=== PATIENT | female | born 1990 | race Caucasian/White ===

== ENCOUNTER 2020-08-22 15:56 | Emergency (ER) | payer MEDICARE, MEDICAID, SELFPAY ==
--- NOTE | ~2020-08-22 | XR_ITS ---
EXAMINATION: XR HAND, RIGHT CLINICAL INFORMATION: Fall COMPARISON: None TECHNIQUE: PA, lateral, and oblique views of the right hand. FINDINGS: Slight deformity of the fifth metacarpal distally compatible with old fracture The bones and soft tissues are normal. No fracture. Alignment is anatomic. Joint spaces are maintained. No erosions or soft tissue calcifications. XR/XR hand RT min 3V IMPRESSION: No acute abnormality. Old fracture fifth metacarpal
--- NOTE | ~2020-08-22 | XR_ITS ---
EXAMINATION: XR WRIST, RIGHT CLINICAL INFORMATION: Fall, injury COMPARISON: None TECHNIQUE: PA, lateral, oblique, and scaphoid views of the right wrist. FINDINGS: The bones and soft tissues are normal. No fracture. Alignment is anatomic with normal joint spaces. No erosions or abnormal soft tissue calcifications. XR/XR wrist RT min 3V IMPRESSION: No acute osseous abnormality of the right wrist.
[2020-08-22 16:53] VITALS: BP 136/61; PULSE 54; RESP 14; TEMP 36.3; O2SAT 99; BMI 41.3
--- NOTE | 2020-08-22 19:06 | ED_ITS ---
HPI - Fall General Chief Complaint: Fall Stated Complaint: wrist inj Time Seen by Provider: 08/22/20 18:51 Source: patient Mode of arrival: ambulatory History of Present Illness HPI Narrative: 30-year-old female with past medical history of asthma presenting to the ED complaining of right wrist/hand pain s/p mechanical fall in the shower this morning. States slipped and fell backwards, hit head on shower, denies LOC or taking anticoagulation. Admits to mild tingling in right hand. Denies injury to other area, vision changes, nausea/vomiting, symptoms prior to fall, decreased ROM MD complaint: fall Related Data Previous Rx's Medication Instructions Recorded acetaminophen [Tylenol Extra 500 mg PO Q6H PRN #20 tab 08/22/20 Strength] naproxen 500 mg PO BID PRN 10 Days #20 tab 08/22/20 Allergies Allergy/AdvReac Type Severity Reaction Status Date / Time No Known Allergies Allergy Verified 08/22/20 18:28 [No Known Allergies*] Review of Systems Review of Systems: Constitutional: No Fever, No Chills Eyes: No Eye Pain, No Vision Changes Cardiovascular: No Chest Pain, No SOB Respiratory: No Dyspnea Gastrointestinal: No Nausea, No Vomiting Musculoskeletal: +joint pain, No Myalgias, No Joint Swelling Skin: No Skin Lesions, No rash Neuro: No Weakness, No Numbness, No Paresthesias, No Loss of Consciousness, No Dizziness, No Headache Yes all other systems are reviewed and are negative [facility] Past Medical History Attestation statement: The following information was validated with the patient. Medical History (Updated 08/22/20 @ 19:23 by MAXIMO Brooks) Asthma Social History Social History Alcohol intake: never Smoking Status: Former smoker Substance Use Type: Marijuana Any prior treatment program specific to substance use: No Advance Directives: No Advance Directives Information Provided: Yes Physical Exam Vital Signs: Vital Signs: Last Vital Signs Temp 97.4 F 08/22/20 16:53 Pulse 54 08/22/20 16:53 Resp 14 08/22/20 16:53 BP 136/61 08/22/20 16:53 Pulse Ox 99 08/22/20 16:53 Body Mass Index 41.3 Const: General: cooperative, healthy appearing, comfortable and no acute distress Orientation/consciousness: patient oriented x3 Limitations: no limitations HENMT: Other: No palpable skull fracture/hematoma or tenderness. No raccoon eyes or Escobar sign Head: Yes normal to inspection, Yes normocephalic and Yes atraumatic Ears: hearing grossly normal bilaterally General nose exam: Normal external nose present Face and sinus: Yes normal facial exam Eyes: General: appearance normal, both eyes and all related structures Pupils: Equal, round and reactive pupils present EOM: EOMs intact bilaterally Neck: Neck: Yes normal visual inspection and Yes no meningeal signs Resp: Effort & Inspection: normal respiratory effort Cardio: Rate: regular rate GI: Inspection: Yes normal to inspection Skin: Rashes: no rashes Wounds: no wounds Neuro: General: patient oriented x3, gait normal, tone normal, moves all extremities, no meningeal signs, no focal motor deficits and CN's II-XI intact bilaterally Cranial nerves: Yes Equal, round and reactive pupils present Cognition (Neuro): normal cognition Gait exam (Neuro): Normal gait present Motor exam (neuro): 5/5 motor strength present throughout and Pronator motor function not present Extrem: Other: Right hand/wrist with mild swelling/hand ecchymosis to volar aspect. + snuffbox tenderness and 1st- 2nd metacarpal tenderness. FROM intact to wrist/hand. Neurovascularly intact. Thumb to finger opposition intact Course Course Course Narrative: * Wrist/hand x-rays without acute findings > patient placed in thumb spica splint to follow-up with orthopedics MDM - Fall MDM Narrative Medical decision making narrative: On exam VSS, NAD/well-appearing, physical exam as above. Concern for fracture Discharge Plan Discharge Clinical Impression: Hand pain, right Acute wrist pain Qualifiers: Laterality: right Qualified Code(s): M25.531 - Pain in right wrist Patient Disposition: Home, Self-Care Instructions: Wrist Injury (ED) Additional Instructions: Your x-rays were unremarkable, however due to where youre tender on exam there is fear you may have a small fracture in 1 of your hand bones. You need to wear the splint at home at all times until you see the clinical reimbursement specialist, only taking off to shower. Ice and elevate your hand/wrist. Take Tylenol and naproxen at home for pain/swelling. If pain persists or worsens, becomes unbearable return to the ED Prescriptions: New acetaminophen [Tylenol Extra Strength] 500 mg tablet 500 mg PO Q6H PRN (Reason: pain or fever) Qty: 20 RF: 0 naproxen 500 mg tablet 500 mg PO BID PRN (Reason: pain) 10 Days Qty: 20 RF: 0 Referrals: Omega Foster MD [Physician] - 1 week
== END 2020-08-22 20:35 | disposition home or self-care (01) ==
PROVIDERS: Emergency Provider Internal Medicine
DX: S69.91XA Unspecified injury of right wrist, hand and finger(s), initial encounter (principal); M25.531 Pain in right wrist; W18.2XXA Fall in (into) shower or empty bathtub, initial encounter; Y93.9 Activity, unspecified; Y92.002 Bathroom of unspecified non-institutional (private) residence as the place of occurrence of the external cause; Y99.9 Unspecified external cause status; Z79.899 Other long term (current) drug therapy; Z87.891 Personal history of nicotine dependence
CPT/HCPCS: 29125; 73110; 73130; 99283; 99284

== ENCOUNTER 2021-01-08 10:41 | Emergency (ER) | payer MEDICARE, MEDICAID, SELFPAY ==
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
[2021-01-08 11:10] VITALS: BP 140/73; PULSE 76; RESP 18; TEMP 36.3; O2SAT 98; BMI 41.3
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
[2021-01-08 13:01] VITALS: BP 115/56; PULSE 57; RESP 16; TEMP 36.2; O2SAT 100
== END 2021-01-08 15:29 | disposition home or self-care (01) ==
PROVIDERS: Emergency Provider Emergency Medicine
DX: S20.211A Contusion of right front wall of thorax, initial encounter (principal); S80.01XA Contusion of right knee, initial encounter; T14.8XXA Other injury of unspecified body region, initial encounter; V00.142A Scooter (nonmotorized) colliding with stationary object, initial encounter; Y93.89 Activity, other specified; Y92.9 Unspecified place or not applicable; Y99.9 Unspecified external cause status
CPT/HCPCS: 70450; 71250; 72125; 99284

== ENCOUNTER 2021-07-06 00:51 | Emergency (ER) | payer MEDICARE, MEDICAID, SELFPAY ==
[2021-07-06 00:57] VITALS: BP 148/54; PULSE 70; RESP 20; TEMP 36.4; O2SAT 100; BMI 47.2
[2021-07-06 01:29] LABS: COVID-19 Test Negative (Negative)
--- NOTE | 2021-07-06 02:13 | ED.URI ---
HPI - URI/Sore Throat General Chief Complaint: Upper Respiratory Symptoms Stated Complaint: Exposure to COVID Time Seen by Provider: 07/06/21 02:12 Source: patient Mode of arrival: ambulatory Limitations: no limitations History of Present Illness HPI Narrative: Patient acted against COVID exposed to a patient who had COVID 3 days ago now she is complaining of nasal discharge cough slight congestion no fever no chills Related Data Previous Rx's Medication Instructions Recorded acetaminophen 500 mg tablet 500 mg PO Q6H PRN #20 tab 08/22/20 (Tylenol Extra Strength) naproxen 500 mg tablet 500 mg PO BID PRN 10 Days #20 tab 08/22/20 cyclobenzaprine 10 mg tablet 10 mg PO TID PRN #10 tab 01/08/21 ibuprofen 800 mg tablet 800 mg PO Q8H PRN #15 tab 01/08/21 Allergies Allergy/AdvReac Type Severity Reaction Status Date / Time No Known Allergies Allergy Verified 01/08/21 11:10 [No Known Allergies*] Review of Systems Review of Systems: Yes all other systems are reviewed and are negative [facility] Past Medical History Medical History Asthma Social History Social History Alcohol intake: never Substance Use Type: Marijuana Advance Directives: No Advance Directives Information Provided: Yes Physical Exam Vital Signs: Vital Signs: Last Vital Signs Temp 97.5 F 07/06/21 00:57 Pulse 70 07/06/21 00:57 Resp 20 07/06/21 00:57 BP 148/54 H 07/06/21 00:57 Pulse Ox 100 07/06/21 00:57 BMI result Body Mass Index 47.2 Appearance: Alert. Oriented X3. No acute distress. ENT: Pharynx normal. Oral Mucosa moist Neck: Normal inspection. Neck supple. CVS: Normal heart rate and rhythm. Pulses normal. Respiratory: No respiratory distress. Equal air entry bilateral, no wheezing/rales/rhonchi Abdomen: Soft and nontender. Skin: Skin warm and dry. Normal skin color. Normal skin turgor. Neuro: Oriented X 3. MDM - URI/Sore Throat Lab Data Attestation: I reviewed the patient's lab results. Labs: Lab Results 07/06/21 Range/Units 01:00 COVID-19 ([facility]) Negative (Negative) COVID-19 Clin Com See Note Discharge Plan Discharge Clinical Impression: Upper respiratory infection Patient Disposition: Home, Self-Care Instructions: Upper Respiratory Infection (ED) Additional Instructions: Drink plenty of fluids Social distancing as advised COVID test is negative Prescriptions: No Action acetaminophen [Tylenol Extra Strength] 500 mg tablet 500 mg PO Q6H PRN (Reason: pain or fever) Qty: 20 RF: 0 naproxen 500 mg tablet 500 mg PO BID PRN (Reason: pain) 10 Days Qty: 20 RF: 0 ibuprofen 800 mg tablet 800 mg PO Q8H PRN (Reason: pain) Qty: 15 RF: 0 cyclobenzaprine 10 mg tablet 10 mg PO TID PRN (Reason: muscle spasm) Qty: 10 RF: 0 Stand Alone Forms: Work/School Release Interventions: ED Discharge Assessment Last Done: 07/06/21 02:18 Discharge Date/Time: 07/06/21 02:19
== END 2021-07-06 02:19 | disposition home or self-care (01) ==
PROVIDERS: Emergency Provider Internal Medicine
DX: J06.9 Acute upper respiratory infection, unspecified (principal); Z20.822 Contact with and (suspected) exposure to COVID-19
CPT/HCPCS: 36415; 87635; 99283

== ENCOUNTER 2021-08-20 19:04 | Emergency (ER) | payer MEDICARE, MEDICAID, SELFPAY ==
[2021-08-20 19:28] VITALS: BP 126/70; PULSE 61; RESP 16; TEMP 36.4; O2SAT 99; BMI 42.6
--- NOTE | 2021-08-20 19:49 | ED_ITS ---
HPI - Eye Problem General Chief complaint: Eye Problems Stated complaint: eye pain, headache Time Seen by Provider: 08/20/21 19:48 Source: patient Mode of arrival: ambulatory History of Present Illness HPI Narrative: 31-year-old female with past medical history of asthma presenting to the ED complaining of left eye watery drainage, erythema, and foreign body sensation since 12:00 p.m. this afternoon. Denies wearing glasses or contacts. Denies known injury/trauma, fall, vision change/loss, headache, nausea/vomiting chief complaint: eye pain and eye redness Onset (ago): hour(s) Related Data Previous Rx's Medication Instructions Recorded acetaminophen 500 mg tablet 500 mg PO Q6H PRN #20 tab 08/22/20 (Tylenol Extra Strength) naproxen 500 mg tablet 500 mg PO BID PRN 10 Days #20 tab 08/22/20 cyclobenzaprine 10 mg tablet 10 mg PO TID PRN #10 tab 01/08/21 ibuprofen 800 mg tablet 800 mg PO Q8H PRN #15 tab 01/08/21 polymyxin B sulfate 10,000 1 drp OPHTHALMIC-LEFT Q3H 7 Days 08/20/21 unit-trimethoprim 1 mg/mL eye #10 ml drops (Polytrim) Allergies Allergy/AdvReac Type Severity Reaction Status Date / Time No Known Allergies Allergy Verified 01/08/21 11:10 [No Known Allergies*] Review of Systems Verdana 4l Review of Systems: Verdana 4d Verdana 4d Constitutional: No Fever, No Chills, No Fatigue, No Malaise ENT/Mouth: No Ear Pain, No Nasal Congestion, No Hoarseness, No sore throat Eyes: + Eye Pain, No Swelling, + Redness, No Foreign Body, + Discharge, No Vision Changes CardiovascularCardiovascular: No Chest Pain, No SOB Respiratory: No Cough, No Dyspnea Gastrointestinal: No Nausea, No Vomiting, No Abdominal pain Musculoskeletal: No joint pain, No Myalgias, No Joint Swelling Skin: No Skin Lesions, No rash Neuro: No Weakness, No Paresthesias, No Dizziness, No Headache Yes all other systems are reviewed and are negative [facility] Past Medical History Attestation statement: The following information was validated with the patient. Medical History Asthma Social History Social History Alcohol intake: never Substance Use Type: Marijuana Advance Directives: No Advance Directives Information Provided: Yes Physical Exam Verdana 4l Vital Signs: Verdana 4d Verdana 4d Vital Signs: Verdana 4d Verdana 4Bd Last Vital Signs Verdana 4d Cadd Drafter New 4d Cadd Drafter New 4d Temp 97.6 F 08/20/21 19:28 Cadd Drafter New 4d Pulse 61 08/20/21 19:28 Cadd Drafter New 4d Resp 16 08/20/21 19:28 BP 126/70 08/20/21 19:28 Pulse Ox 99 08/20/21 19:28 BMI result Body Mass Index 42.6 Const: General: cooperative and healthy appearing Orientation/consciousness: patient oriented x3 Limitations: no limitations HENMT: Head: Yes normal to inspection Ears: hearing grossly normal bilaterally, external ears normal and mastoids normal General nose exam: Normal external nose present Face and sinus: Yes normal facial exam Eyes: Other: IOP right eye: 14, 13, 14 left eye: 15, 14, 13 General: appearance normal, both eyes and all related structures Periorbital: periorbital findings normal Eyelids: Yes eyelids normal Conjunctivae: conjunctival abnormal left subconjunctival hemorrhage; Negative for without discharge Corneas: corneas abnormal on the left abrasion at the following clock position (3 o'clock); Negative for without dendrites present and fluorescein used Pupils: Equal, round and reactive pupils present EOM: EOMs intact bilaterally (without pain) and no movement deficit Direct Ophthalmoscopy: normal light reflex and no photophobia Neck: Neck: Yes normal visual inspection and Yes no meningeal signs Resp: Effort & Inspection: normal respiratory effort and no respiratory distress Cardio: Rate: regular rate Heart sounds: S1 normal heart sound present and S2 normal heart sound present Skin: Rashes: no rashes Wounds: no wounds Neuro: General: patient oriented x3 and no meningeal signs Cranial nerves: Yes Equa l, round and reactive pupils present Gait exam (Neuro): Normal gait present Extrem: General: Yes normal to inspection MDM - Eye Problem MDM Narrative Medical decision making narrative: 31-year-old female with past medical history of asthma presenting to the ED complaining of left eye watery drainage, erythema, and foreign body sensation since 12:00 p.m. this afternoon. On exam vital signs stable, NAD/nontoxic appearing, left subconjunctival hemorrhage noted and corneal abrasion. EOMs intact without pain. No evidence of ulceration. IOP WNL bilaterally. Visual acuity 20/40 bilaterally. Will treat with Polytrim. No evidence of globe rupture/orbital or lenard-orbital cellulitis Discussed with patient worrisome signs and symptoms and strict return precautions and needed close follow-up with Ophthalmology. She verbalized understanding feel safe for discharge home Medical Records Attestation: I reviewed the patient's medical records. Lab Data Attestation: I reviewed the patient's lab results. Discharge Plan Discharge Clinical Impression: Corneal abrasion, Subconjunctival hemorrhage Patient Disposition: Home, Self-Care Instructions: Subconjunctival Hemorrhage (ED), Corneal Abrasion (DC) Additional Instructions: You have a subconjunctival hemorrhage as well as corneal abrasion. Polytrim is antibiotic eyedrops, use as directed. Please follow-up with Ophthalmology. If symptoms persist or worsen, you develop vision loss, vision changes, severe headache, or nausea/vomiting please return to the ED Prescriptions: New polymyxin B sulf-trimethoprim [Polytrim] 10,000 unit- 1 mg/mL drops 1 drp ophthalmic-Left Q3H 7 Days Qty: 10 0RF Rx Instructions: while awake; do not exceed 6 doses in 24 hours No Action acetaminophen [Tylenol Extra Strength] 500 mg tablet 500 mg PO Q6H PRN (Reason: pain or fever) Qty: 20 0RF naproxen 500 mg tablet 500 mg PO BID PRN (Reason: pain) 10 Days Qty: 20 0RF ibuprofen 800 mg tablet 800 mg PO Q8H PRN (Reason: pain) Qty: 15 0RF Rx Instructions: supervising MD Rere Ansari cyclobenzaprine 10 mg tablet 10 mg PO TID PRN (Reason: muscle spasm) Qty: 10 0RF Rx Instructions: supervising MD Barbara Ansari Referrals: Leonardo Lora [Physician] - 2 days
[2021-08-20] MEDS: Fluorescein Sodium STRIP 1 STRIP EYE-LEFT (20:01)
[2021-08-20] MEDS: Tetracaine HCl/PF 0.5% Oph Sol 4 ML DROPS 3 DROP EYE-LEFT (20:01)
== END 2021-08-20 21:27 | disposition home or self-care (01) ==
PROVIDERS: Emergency Provider Student in an Organized Health Care Education/Training Program
DX: S05.02XA Injury of conjunctiva and corneal abrasion without foreign body, left eye, initial encounter (principal); X58.XXXA Exposure to other specified factors, initial encounter; H11.32 Conjunctival hemorrhage, left eye; H57.12 Ocular pain, left eye; Y93.9 Activity, unspecified; Y92.9 Unspecified place or not applicable; Y99.9 Unspecified external cause status
CPT/HCPCS: 99283; 99284

== ENCOUNTER 2021-09-24 12:34 | Emergency (ER) | payer MEDICARE, MEDICAID, SELFPAY ==
[2021-09-24 12:44] VITALS: BP 140/69; PULSE 68; RESP 16; TEMP 36.5; O2SAT 99; BMI 52.9
--- NOTE | 2021-09-24 13:47 | ED.BACK ---
HPI - Back Pain/Injury General Chief Complaint: Back Pain/Injury Stated Complaint: back pain Time Seen by Provider: 09/24/21 13:47 Source: patient Mode of arrival: ambulatory History of Present Illness HPI Narrative: 31-year-old female with past medical history of asthma presenting to the ED complaining of right-sided low back pain radiating down RLE x a few days. Admits to similar symptoms in the past. Denies known injury/trauma or fall, states pain began after bending down to put socks on. Denies weakness, numbness, urinary incontinence/retention, fever MD elicited complaint: back pain Onset (ago): day(s) Related Data Previous Rx's Medication Instructions Recorded acetaminophen 500 mg tablet 500 mg PO Q6H PRN #20 tab 08/22/20 (Tylenol Extra Strength) naproxen 500 mg tablet 500 mg PO BID PRN 10 Days #20 tab 08/22/20 cyclobenzaprine 10 mg tablet 10 mg PO TID PRN #10 tab 01/08/21 ibuprofen 800 mg tablet 800 mg PO Q8H PRN #15 tab 01/08/21 polymyxin B sulfate 10,000 1 drp OPHTHALMIC-LEFT Q3H 7 Days 08/20/21 unit-trimethoprim 1 mg/mL eye #10 ml drops (Polytrim) acetaminophen 500 mg tablet 500 mg PO Q6H PRN #20 tab 09/24/21 (Tylenol Extra Strength) cyclobenzaprine 5 mg tablet 5 mg PO Q8H PRN 5 Days #14 tab 09/24/21 lidocaine 5 % topical patch 1 patch TOPICAL DAILY PRN #30 ea 09/24/21 (Lidoderm) MDD remove after 12 hours naproxen 500 mg tablet 500 mg PO BID PRN 10 Days #20 tab 09/24/21 Allergies Allergy/AdvReac Type Severity Reaction Status Date / Time No Known Allergies Allergy Verified 09/24/21 12:44 [No Known Allergies*] Review of Systems Review of Systems: Constitutional: No Fever, No Chills, No Fatigue, No Malaise ENT/Mouth: No Ear Pain, No Nasal Congestion, No sore throat, No Rhinorrhea, No Swallowing Difficulty Eyes: No Eye Pain, No Swelling, No Redness Cardiovascular: No Chest Pain, No SOB, No Palpitations Respiratory: No Cough, No Dyspnea Gastrointestinal: No Nausea, No Vomiting, No Abdominal pain Genitourinary: No Dysuria, No Urinary Frequency, No Hematuria, No Urinary Incontinence/retention, No Flank Pain, No Urinary Flow Changes Musculoskeletal: + joint pain, No Myalgias, No Joint Swelling Skin: No Skin Lesions, No rash Neuro: No Weakness, No Numbness, No Paresthesias, No Headache Yes all other systems are reviewed and are negative Neurologic: Denies Sensory deficit (Neuro) [facility] Past Medical History Attestation statement: The following information was validated with the patient. Medical History Asthma Social History Social History Alcohol intake: never Substance Use Type: Marijuana Advance Directives: Yes Advance Directives Information Provided: Yes Advance Directives on File: No Physical Exam Vital Signs: Vital Signs: Last Vital Signs Temp 97.7 F 09/24/21 12:44 Pulse 68 09/24/21 12:44 Resp 16 09/24/21 12:44 BP 140/69 H 09/24/21 12:44 Pulse Ox 99 09/24/21 12:44 BMI result Body Mass Index 52.9 Const: General: cooperative, healthy appearing and no acute distress Orientation/consciousness: patient oriented x3 Limitations: no limitations HENMT: Head: Yes normal to inspection and Yes atraumatic Ears: hearing grossly normal bilaterally General nose exam: Normal external nose present Face and sinus: Yes normal facial exam Eyes: General: appearance normal, both eyes and all related structures EOM: EOMs intact bilaterally Neck: Other: Midline cervical spinous tenderness Neck: Yes normal visual inspection Resp: Effort & Inspection: normal respiratory effort and no respiratory distress Cardio: Rate: regular rate Heart sounds: S1 normal heart sound present and S2 normal heart sound present Peripheral pulses: dorsalis pedis present GI: Inspection: Yes normal to inspection Palpation (GI): Soft to palpation, nontender, no guarding and not rigid : General: Yes no CVA tenderness Back/Spine/Pelvis: Other: No Midline thoracic/lumbar spinous tenderness. Right-sided lumbar MSK and right buttock tenderness to palpation Back: no CVA tenderness Skin: Rashes: no rashes Wounds: no wounds Neuro: Other: Ambulating with steady gait. Strength intact throughout. No saddle anesthesia. General: patient oriented x3, gait normal, tone normal and moves all extremities Gait exam (Neuro): Normal gait present Motor exam (neuro): 5/5 motor strength present throughout Sensory Exam: No Sensory deficit (Neuro) Extrem: General: Yes normal to inspection MDM - Back Pain/Injury MDM Narrative Medical decision making narrative: 31-year-old female with past medical history of asthma presenting to the ED complaining of right-sided low back pain radiating down RLE x a few days. Exam vital signs stable, NAD, no midline spinous tenderness throughout, no red flag symptoms, strength intact throughout, no saddle anesthesia. Concern for sciatica/MSK pain/strain. Low concern for equina cord compression or pyelo/renal stone Plan: Pain control, discussed worrisome signs and symptoms and strict return precautions Differential Diagnosis Differential diagnosis: Likely lumbar radiculopathy, sciatica and strain of lumbar region Medical Records Attestation: I reviewed the patient's medical records. Lab Data Attestation: I reviewed the patient's lab results. Discharge Plan Discharge Clinical Impression: Sciatica Patient Disposition: Home, Self-Care Instructions: Acute Low Back Pain (ED) Additional Instructions: Your pain is likely musculoskeletal Flexeril is a muscle relaxer, take at night as it makes you drowsy, do not drive, drink alcohol, or operate machinery while taking it Naproxen as an anti-inflammatory / pain medication, take with food Lidoderm patches are numbing patches, apply to painful area In addition take Tylenol at home If symptoms persist or worsen, pain becomes unbearable, you developed urinary retention or incontinence, or weakness return to the ED Prescriptions: New lidocaine [Lidoderm] 5 % adhesive patch,medicated 1 patch topical DAILY MDD remove after 12 hours PRN (Reason: pain) Qty: 30 0RF Rx Instructions: leave on most painful area for up to 12 hrs cyclobenzaprine 5 mg tablet 5 mg PO Q8H PRN (Reason: pain (scale score 7-10)) 5 Days Qty: 14 0RF acetaminophen [Tylenol Extra Strength] 500 mg tablet 500 mg PO Q6H PRN (Reason: pain or fever) Qty: 20 0RF naproxen 500 mg tablet 500 mg PO BID PRN (Reason: pain) 10 Days Qty: 20 0RF No Action acetaminophen [Tylenol Extra Strength] 500 mg tablet 500 mg PO Q6H PRN (Reason: pain or fever) Qty: 20 0RF naproxen 500 mg tablet 500 mg PO BID PRN (Reason: pain) 10 Days Qty: 20 0RF ibuprofen 800 mg tablet 800 mg PO Q8H PRN (Reason: pain) Qty: 15 0RF Rx Instructions: supervising MD Rere Ansari cyclobenzaprine 10 mg tablet 10 mg PO TID PRN (Reason: muscle spasm) Qty: 10 0RF Rx Instructions: supervising MD Barbara Ansari polymyxin B sulf-trimethoprim [Polytrim] 10,000 unit- 1 mg/mL drops 1 drp ophthalmic-Left Q3H 7 Days Qty: 10 0RF Rx Instructions: while awake; do not exceed 6 doses in 24 hours Referrals: Physician,None [Primary Care Provider] - 2 days
== END 2021-09-24 13:55 | disposition home or self-care (01) ==
PROVIDERS: Emergency Provider Emergency Medicine
DX: M54.41 Lumbago with sciatica, right side (principal)
CPT/HCPCS: 99283

== ENCOUNTER 2022-04-28 09:09 | Emergency (ER) | payer MEDICARE, MEDICAID, SELFPAY ==
[2022-04-28 09:12] VITALS: BP 151/65; PULSE 58; RESP 16; TEMP 36; O2SAT 100; BMI 41.3
--- NOTE | 2022-04-28 09:53 | ED.GENADULT ---
HPI - General Adult General Chief complaint: Skin/Abscess/Foreign Body Stated complaint: swollen neck, lumps on neck Time Seen by Provider: 04/28/22 09:18 Source: patient Mode of arrival: ambulatory Limitations: no limitations History of Present Illness HPI narrative: Patient is a 32-year-old female with a past medical history of asthma, presenting with to lumps on the back of her neck which started a few days prior. Patient reports associated 4/10 pain while touching these lumps, and states that the pain radiates up the right side of her back head. She reports 0/10 pain at rest. patient denies fever, chills, rash, or close sick contacts. patient also states that her urine smells like a dirty diaper , and over the past year she has developed this hypopigmented rash. Patient reports that she has ibuprofen at home though has not taken it because of the pain only happens when she touches the lump. MD complaint: enlarged bump on the back of neck Onset (ago): day(s) (2) Location: neck Radiation: neck Severity scale (1-10): 4 ( with palpation) Pain Consistency: intermittent Relieving factors: rest Exacerbating factors: other ( palpation) Associated symptoms: denies other symptoms Treatments prior to arrival: none Related Data Previous Rx's Medication Instructions Recorded acetaminophen 500 mg tablet 500 mg PO Q6H PRN pain or fever 08/22/20 (Tylenol Extra Strength) #20 tabs naproxen 500 mg tablet 500 mg PO BID PRN pain 10 days #20 08/22/20 tabs cyclobenzaprine 10 mg tablet 10 mg PO TID PRN muscle spasm #10 01/08/21 tabs ibuprofen 800 mg tablet 800 mg PO Q8H PRN pain #15 tabs 01/08/21 polymyxin B sulfate 10,000 1 drp ophthalmic-Left Q3H 7 days 08/20/21 unit-trimethoprim 1 mg/mL eye #10 mL drops (Polytrim) acetaminophen 500 mg tablet 500 mg PO Q6H PRN pain or fever 09/24/21 (Tylenol Extra Strength) #20 tabs cyclobenzaprine 5 mg tablet 5 mg PO Q8H PRN pain (scale score 09/24/21 7-10) 5 days #14 tabs lidocaine 5 % topical patch 1 patch topical DAILY PRN pain #30 09/24/21 (Lidoderm) ea naproxen 500 mg tablet 500 mg PO BID PRN pain 10 days #20 09/24/21 tabs nitrofurantoin 100 mg PO Q12H 5 days #10 caps 04/28/22 monohydrate/macrocrystals 100 mg capsule (Macrobid) Allergies Allergy/AdvReac Type Severity Reaction Status Date / Time No Known Allergies Allergy Verified 09/24/21 12:44 [No Known Allergies*] Review of Systems Review of Systems: Constitutional: No Fever, No Chills ENT/Mouth: No sore throat, No Rhinorrhea, No Swallowing Difficulty Eyes: No Eye Pain, No Swelling, No Redness Cardiovascular: No Chest Pain, No SOB, No Orthopnea, No Edema Respiratory: No Cough, No Sputum, No Wheezing, No dyspnea Gastrointestinal: No Nausea, No Vomiting, No Diarrhea, No abdominal Pain, No Hematochezia, No Melena Genitourinary: No Dysuria, No Urinary Frequency, No Hematuria, +Foul smelling urine Musculoskeletal: No joint pain, No Myalgias Skin: No Skin Lesions, No rash Neuro: No Weakness, No Numbness, No Dizziness, No Headache Psych: No Anxiety/Panic, No Depression Heme/Lymph: No Bruising, + bump on back side of right neck - possible Lymphadenopathy Yes all other systems are reviewed and are negative [facility] Past Medical History Medical History Asthma Social History Social History Alcohol intake: never Substance Use Type: Marijuana Advance Directives: No Advance Directives Information Provided: No Physical Exam ED Vital Signs: Vital Signs - 24 hr 04/28/22 09:12 Temperature 96.8 F Pulse Rate 58 Respiratory Rate 16 Blood Pressure 151/65 H Pulse Oximetry 100 Oxygen Delivery Method Room Air BMI result Body Mass Index 41.3 Appearance: Alert. Oriented X3. No acute distress. Eyes: Pupils equal, round and reactive to light. ENT: Pharynx normal. Neck: Normal inspection. Neck supple. 1 round soft mass approximately 1 cm diameter located near the occipital lymph nodes. CVS: Normal heart rate and rhythm. Pulses normal. Respiratory: No respiratory distress. Breath sounds normal. Skin: Skin warm and dry. Normal skin color. Reticular hypopigmentation noted bilaterally on shins. Normal skin turgor. No rashes. Extremities: No lower extremity edema. Neuro: Oriented X 3. No motor deficit. No sensory deficit. Course Course Course Narrative: Patient is a 32-year-old female with past medical history of asthma presenting with two bumps on the right side of the neck. Patient denies any systemic symptoms such as fever chills or rashes. Physical exam is significant for 1 round soft mass approximately 1 cm diameter located near the occipital lymph nodes, 2nd bump was not palpated. Plan: - CBC, BMP, UA - discharge home with anti-inflammatories, follow-up with PCP for further workup with an ultrasound if pain/ bumps persist. Reevaluation(s) Reevaluation #1: Labs are unremarkable. Urinalysis consistent with infection. Will treat with oral antibiotics. She will follow-up with her PCP as needed. Stable for discharge home. Medical Decision Making Lab Data Result diagrams: 04/28/22 10:25 04/28/22 10:25 Labs: Lab Results 04/28/22 04/28/22 04/28/22 Range/Units 10:25 10:25 10:25 WBC 8.8 (4.8-10.8) X10*3/uL RBC 4.45 (4.20-5.50) X10*6/uL Hgb 13.7 (12.0-16.0) g/dl Hct 41.7 (37.0-47.0) % MCV 93.7 (80.0-98.0) fL MCH 30.8 (27.0-33.0) pg MCHC 32.9 (31.0-35.0) g/dl RDW 13.0 (11.0-16.0) % Plt Count 191 (160-400) X10*3/uL MPV 10.7 (9.4-12.3) fL Immature Gran % (Auto) 0.3 (0.0-0.4) % Neut % (Auto) 69.6 (45-73) % Lymph % (Auto) 23.2 (20-40) % [place] % (Auto) 4.4 (2-11) % Eos % (Auto) 1.9 (0-4) % Baso % (Auto) 0.6 (0-2) % Lymph # (Auto) 2.1 (1.2-4.9) X10*3/uL [place] # (Auto) 0.4 (0.1-1.2) X10*3/uL Eos # (Auto) 0.2 (0.0-0.4) X10*3/uL Baso # (Auto) 0.1 (0.0-0.2) X10*3/uL Abs Immat Gran (auto) 0.03 (0.00-0.03) X10*3/uL Absolute Neuts (auto) 6.1 (2.0-8.3) x10*3/uL Absolute Nucleated RBC 0.000 (0.0-0.012) X10*3/uL Nucleated RBC % (auto) 0.0 (0.0-0.2) /100WBC Sodium 141 (135-145) mmol/L Potassium 4.3 (3.3-5.1) mmol/L Chloride 105 (96-108) mmol/L Carbon Dioxide 27 (22-29) mmol/L Anion Gap 13 (12-20) BUN 15 (9-16) mg/dL Creatinine 0.71 (0.5-1.4) mg/dL Estim Creat Clear Calc 159.5 Estimated GFR > 60 Random Glucose 100 (60-115) mg/dL Calcium 8.7 (8.4-10.2) mg/dL Urine Color Yellow Urine Appearance Clear Urine pH 6.0 (5.0-9.0) Ur Specific [place] 1.020 (1.005-1.025) Urine Protein Negative (Neg-Trace) mg/dL Urine Glucose (UA) Negative (Negative) mg/dL Urine Ketones Negative (Negative) mg/dL Urine Blood Negative (Negative) Urine Nitrite Negative (Negative) Ur Leukocyte Esterase Moderate (2+) H (Negative) Urine RBC 3-5 H (0-2) /HPF Urine WBC >50 H (0-5) /HPF Ur Squamous Epith Cells 0-2 (0-2) /HPF Urine Bacteria None Seen (None Seen) Hyaline Casts 0-2 (0-2) /LPF Critical Care Time Critical Care Time Critical Care Time: No Discharge Plan Discharge Clinical Impression: Acute UTI, Lymphadenopathy Patient Disposition: Home, Self-Care Instructions: Urinary Tract Infection in Women (ED), Lymphadenopathy (ED) Additional Instructions: Your lab workup today was unremarkable. Your urinalysis showed evidence of urinary tract infection. Take the prescribed antibiotic as directed. Complete the entire course. No sexual activity until all of her symptoms are resolved completely and your antibiotics are completed. Take Motrin and Tylenol as needed for pain and swelling of the enlarged lymph node. If you have persistent swelling and pain recommend following up with her primary care doctor for further evaluation. If you develop new or worsening symptoms call 911 or come back to the ER for further evaluation. Prescriptions: New nitrofurantoin monohyd/m-cryst [Macrobid] 100 mg capsule 100 mg PO Q12H 5 Days Qty: 10 0RF Rx Instructions: must administer with a meal/food No Action acetaminophen [Tylenol Extra Strength] 500 mg tablet 500 mg PO Q6H PRN (Reason: pain or fever) Qty: 20 0RF naproxen 500 mg tablet 500 mg PO BID PRN (Reason: pain) 10 Days Qty: 20 0RF ibuprofen 800 mg tablet 800 mg PO Q8H PRN (Reason: pain) Qty: 15 0RF Rx Instructions: supervising MD Rere Ansari cyclobenzaprine 10 mg tablet 10 mg PO TID PRN (Reason: muscle spasm) Qty: 10 0RF Rx Instructions: supervising MD Barbara Ansari polymyxin B sulf-trimethoprim [Polytrim] 10,000 unit- 1 mg/mL drops 1 drp ophthalmic-Left Q3H 7 Days Qty: 10 0RF Rx Instructions: while awake; do not exceed 6 doses in 24 hours lidocaine [Lidoderm] 5 % adhesive patch,medicated 1 patch topical DAILY MDD remove after 12 hours PRN (Reason: pain) Qty: 30 0RF Rx Instructions: leave on most painful area for up to 12 hrs cyclobenzaprine 5 mg tablet 5 mg PO Q8H PRN (Reason: pain (scale score 7-10)) 5 Days Qty: 14 0RF acetaminophen [Tylenol Extra Strength] 500 mg tablet 500 mg PO Q6H PRN (Reason: pain or fever) Qty: 20 0RF naproxen 500 mg tablet 500 mg PO BID PRN (Reason: pain) 10 Days Qty: 20 0RF
[2022-04-28 10:30] LABS: MANUAL DIFF FLAG NO
[2022-04-28 10:31] LABS: Basophils Absolute Auto 0.1 X10*3/uL (0.0-0.2); Basophils Percent Auto 0.6 % (0-2); Eosinophils Absolute Auto 0.2 X10*3/uL (0.0-0.4); Eosinophils Percent Auto 1.9 % (0-4); Hematocrit 41.7 % (37.0-47.0); Hemoglobin 13.7 g/dl (12.0-16.0); Imm Gran Abs Auto 0.03 X10*3/uL (0.00-0.03); Imm Gran Pct Auto 0.3 % (0.0-0.4); Lymphocytes Absolute Auto 2.1 X10*3/uL (1.2-4.9); Lymphocytes Percent Auto 23.2 % (20-40); Mean Corpuscular HGB Conc 32.9 g/dl (31.0-35.0); Mean Corpuscular Hemoglobin 30.8 pg (27.0-33.0); Mean Corpuscular Volume 93.7 fL (80.0-98.0); Mean Platelet Volume 10.7 fL (9.4-12.3); Monocytes Absolute Auto 0.4 X10*3/uL (0.1-1.2); Monocytes Percent Auto 4.4 % (2-11); Neutrophils Absolute Auto 6.1 x10*3/uL (2.0-8.3); Neutrophils Percent Auto 69.6 % (45-73); Platelet Count 191 X10*3/uL (160-400); Red Blood Count 4.45 X10*6/uL (4.20-5.50); White Blood Count 8.8 X10*3/uL (4.8-10.8)
[2022-04-28 10:32] LABS: Appearance Urine Clear; Color Urine Yellow; Glucose Urine UA Negative (Negative); Leukocyte Esterase Urine Moderate (2+) (Negative); Nitrite Urine Negative (Negative); UMIC TRIGGER UACC YES; Urine Blood Negative (Negative); Urine Ketones Negative (Negative); Urine Protein Negative (Neg-Trace)
[2022-04-28 10:34] LABS: Bacteria Urine None Seen (None Seen); Hyaline Casts Urine 0-2 /LPF (0-2); Squamous Epithelial Cell Urine 0-2 /HPF (0-2); UACC Culture Trigger YES; WBC Urine >50 /HPF (0-5)
[2022-04-28 10:50] LABS: Anion Gap 13 (12-20); Blood Urea Nitrogen 15 mg/dL (9-16); Calcium 8.7 mg/dL (8.4-10.2); Carbon Dioxide 27 mmol/L (22-29); Chloride 105 mmol/L (96-108); Creatinine Clr Calc Pharmacy 159.5; Estimated Glomerular Filt Rate > 60; Glucose Random 100 mg/dL (60-115); Potassium 4.3 mmol/L (3.3-5.1); Sodium 141 mmol/L (135-145)
== END 2022-04-28 11:24 | disposition home or self-care (01) ==
PROVIDERS: Physician Assistant; Emergency Provider Emergency Medicine
DX: N39.0 Urinary tract infection, site not specified (principal); R59.1 Generalized enlarged lymph nodes; Z79.899 Other long term (current) drug therapy
CPT/HCPCS: 36415; 80048; 81001; 85025; 87086; 87088; 87147; 87186; 99283

== ENCOUNTER 2022-10-23 14:21 | Emergency (ER) | payer MEDICARE, MEDICAID, SELFPAY ==
[2022-10-23 15:26] VITALS: BP 129/51; PULSE 53; RESP 16; TEMP 36.8; O2SAT 99; BMI 41.3
--- NOTE | 2022-10-23 15:26 | ED_ITS ---
HPI - General Adult General Chief complaint: General Medical <MAXIMO Ivory Last Filed: 10/23/22 15:28> Stated complaint: tick bite <MAXIMO Ivory Last Filed: 10/23/22 15:28> Time Seen by Provider: 10/23/22 16:03 <MAXIMO Ivory Last Filed: 10/23/22 15:28> Source: patient <MAXIMO Boykin Last Filed: 10/23/22 16:11> Mode of arrival: ambulatory <MAXIMO Boykin Last Filed: 10/23/22 16:11> Limitations: no limitations <MAXIMO Boykin Last Filed: 10/23/22 16:11> History of Present Illness HPI narrative: 32-year-old female presents to the ER for evaluation of a tick bite that she noticed yesterday. She went fishing the day prior and thinks she got a tick bite in her left inguinal area. She pulled the tick out yesterday. She noticed a bruise and a small red ring around the area and is concerned she may not have gotten the entire take out. She does report some itching and discomfort to the area with a bite. She also reports some diffuse body aches, mild. No fevers. She has no other insect bites. History of Lyme <MAXIMO Boykin Last Filed: 10/23/22 16:11> MD complaint: Tick bite <MAXIMO Boykin Last Filed: 10/23/22 16:11> Onset (ago): day(s) (2) <MAXIMO Boykin Last Filed: 10/23/22 16:11> Location: left and lower extremity <MAXIMO Boykin Last Filed: 10/23/22 16:11> Radiation: non-radiation <MAXIMO Boykin Last Filed: 10/23/22 16:11> Severity: mild <MAXIMO Boykin Last Filed: 10/23/22 16:11> Quality: aching <MAXIMO Boykin Last Filed: 10/23/22 16:11> Pain Consistency: intermittent <MAXIMO Boykin Last Filed: 10/23/22 16:11> Relieving factors: none <MAXIMO Boykin - Last Filed: 10/23/22 16:11> Exacerbating factors: none <MAXIMO Boykin - Last Filed: 10/23/22 16:11> Associated symptoms: denies other symptoms <MAXIMO Boykin - Last Filed: 10/23/22 16:11> Treatments prior to arrival: none <MAXIMO Boykin - Last Filed: 10/23/22 16:11> Related Data Home medications: Previous Rx's Medication Instructions Recorded acetaminophen 500 mg tablet 500 mg PO Q6H PRN pain or fever 08/22/20 (Tylenol Extra Strength) #20 tabs naproxen 500 mg tablet 500 mg PO BID PRN pain 10 days #20 08/22/20 tabs cyclobenzaprine 10 mg tablet 10 mg PO TID PRN muscle spasm #10 01/08/21 tabs ibuprofen 800 mg tablet 800 mg PO Q8H PRN pain #15 tabs 01/08/21 polymyxin B sulfate 10,000 1 drp ophthalmic-Left Q3H 7 days 08/20/21 unit-trimethoprim 1 mg/mL eye #10 mL drops (Polytrim) acetaminophen 500 mg tablet 500 mg PO Q6H PRN pain or fever 09/24/21 (Tylenol Extra Strength) #20 tabs cyclobenzaprine 5 mg tablet 5 mg PO Q8H PRN pain (scale score 09/24/21 7-10) 5 days #14 tabs lidocaine 5 % topical patch 1 patch topical DAILY PRN pain #30 09/24/21 (Lidoderm) ea naproxen 500 mg tablet 500 mg PO BID PRN pain 10 days #20 09/24/21 tabs nitrofurantoin 100 mg PO Q12H 5 days #10 caps 04/28/22 monohydrate/macrocrystals 100 mg capsule (Macrobid) <MAXIMO Ivory - Last Filed: 10/23/22 15:28> Allergies/adverse reactions: Allergies Allergy/AdvReac Type Severity Reaction Status Date / Time No Known Allergies Allergy Verified 10/23/22 15:25 [No Known Allergies*] <MAXIMO Ivory - Last Filed: 10/23/22 15:28> Review of Systems Review of Systems: Yes all other systems are reviewed and are negative <MAXIMO Boykin - Last Filed: 10/23/22 16:11> [facility] Past Medical History Medical History: Medical History Asthma <MAXIMO Ivory - Last Filed: 10/23/22 15:28> Social History Social History: Social History Alcohol intake: never Substance Use Type: Marijuana <MAXIMO Ivory - Last Filed: 10/23/22 15:28> Physical Exam ED Vital Signs: Vital Signs - 24 hr 10/23/22 15:26 Temperature 98.2 F Pulse Rate 53 Respiratory Rate 16 Blood Pressure 129/51 L Pulse Oximetry 99 Oxygen Delivery Method Room Air BMI result Body Mass Index 41.3 <MAXIMO Ivory Last Filed: 10/23/22 15:28> Vital Signs - 24 hr 10/23/22 15:26 Temperature 98.2 F Pulse Rate 53 Respiratory Rate 16 Blood Pressure 129/51 L Pulse Oximetry 99 Oxygen Delivery Method Room Air BMI result Body Mass Index 41.3 <MAXIMO Boykin - Last Filed: 10/23/22 16:11> Appearance: Alert. Oriented X3. No acute distress. HEENT: normal inspection CVS: Normal heart rate and rhythm. Pulses normal. Respiratory: No respiratory distress. Skin: Skin warm and dry. Normal skin color. Normal skin turgor Extremities: Left inguinal area with a small, approximately 1 cm round ecchymotic area surrounded by a small ring of erythema. No palpable masses, no warmth. No visible insect, area is flat Neuro: Oriented X 3. grossly normal, nonfocal <MAXIMO Boykin - Last Filed: 10/23/22 16:11> Course Course Course Narrative: RME performed by Jeanna Alejandre PA-C. Patient is a 32 year old assigned female at presenting to the emergency department after being bit by a tick in her left groin. Patient states that she was bit by a tick on however, she didn't find the tick until yesterday. Patient states that she removed it but isn't sure if she got the head or not. Labs ordered. Patient placed back in the waiting room pending room availability and results. <MAXIMO Ivory - Last Filed: 10/23/22 15:28> Medical Decision Making Medical Decision Making MDM Narrative: 32-year-old female presents to the ER for evaluation of left inguinal take bite that occurred on . She removed the tick at approximately 24:00 hours. Exam today does not reveal any further remnants of the tick imbedded in her skin. It is flat. There is some bruising and mild erythema around the bite. The time is not sufficient to transmit Lyme disease. She can get 200 mg prophylactic doxycycline and be stable for discharge home. Patient has been counseled. She is stable for DC. <MAXIMO Boykin Last Filed: 10/23/22 16:11> Differential Diagnosis Differential Diagnoses: The differential diagnosis associated with the presentation includes <MAXIMO Boykin Last Filed: 10/23/22 16:11> Tick bite, insect bite, Lyme disease, bull's-eye rash <MAXIMO Boykin Last Filed: 10/23/22 16:11> External Record Review External record reviewed: Prior outpatient labs <MAXIMO Boykin Last Filed: 10/23/22 16:11> Prescription Management I considered prescription management with: Antibiotic <MAXIMO Boykin Last Filed: 10/23/22 16:11> Critical Care Time Critical Care Time Critical Care Time: No <MAXIMO Boykin Last Filed: 10/23/22 16:11> Discharge Plan Discharge Clinical Impression: Tick bite <MAXIMO Ivory Last Filed: 10/23/22 15:28> Patient Disposition: Home, Self-Care <MAXIMO Ivory Last Filed: 10/23/22 15:28> Instructions: Tick Bite (ED) <MAXIMO Ivory Last Filed: 10/23/22 15:28> Additional Instructions: You were given the 200 mg of doxycycline to prevent transmission of Lyme disease. A tick needs to be imbedded in the skin for 72 hours noted transmit Lyme disease. It is very unlikely you will get Lyme disease. Monitor the area for worsening redness or swelling. You can use warm compresses to the area as needed for pain. Follow-up with your doctor as needed. <MAXIMO Ivory - Last Filed: 10/23/22 15:28> Prescriptions: No Action acetaminophen [Tylenol Extra Strength] 500 mg tablet 500 mg PO Q6H PRN (Reason: pain or fever) Qty: 20 0RF naproxen 500 mg tablet 500 mg PO BID PRN (Reason: pain) 10 Days Qty: 20 0RF ibuprofen 800 mg tablet 800 mg PO Q8H PRN (Reason: pain) Qty: 15 0RF Rx Instructions: supervising MD Rere Ansari cyclobenzaprine 10 mg tablet 10 mg PO TID PRN (Reason: muscle spasm) Qty: 10 0RF Rx Instructions: supervising MD Barbara Ansari polymyxin B sulf-trimethoprim [Polytrim] 10,000 unit- 1 mg/mL drops 1 drp ophthalmic-Left Q3H 7 Days Qty: 10 0RF Rx Instructions: while awake; do not exceed 6 doses in 24 hours lidocaine [Lidoderm] 5 % adhesive patch,medicated 1 patch topical DAILY MDD remove after 12 hours PRN (Reason: pain) Qty: 30 0RF Rx Instructions: leave on most painful area for up to 12 hrs cyclobenzaprine 5 mg tablet 5 mg PO Q8H PRN (Reason: pain (scale score 7-10)) 5 Days Qty: 14 0RF acetaminophen [Tylenol Extra Strength] 500 mg tablet 500 mg PO Q6H PRN (Reason: pain or fever) Qty: 20 0RF naproxen 500 mg tablet 500 mg PO BID PRN (Reason: pain) 10 Days Qty: 20 0RF nitrofurantoin monohyd/m-cryst [Macrobid] 100 mg capsule 100 mg PO Q12H 5 Days Qty: 10 0RF Rx Instructions: must administer with a meal/food <MAXIMO Ivory - Last Filed: 10/23/22 15:28>
[2022-10-23] MEDS: Doxycycline Monohydrate 100 MG CAPSULE 200 MG PO (16:09)
[2022-10-26 00:08] LABS: A. Phagocytphilium DNA,RT-PCR NOT DETECTED (NOT DETECTED); Babesia Microti DNA, RT-PCR NOT DETECTED (NOT DETECTED); Borrelia Miyamotoi,DNA RT-PCR NOT DETECTED (NOT DETECTED); E.Chaffeensis DNA RT-PCR NOT DETECTED (NOT DETECTED); Lyme(Borrelia ssp)DNA RT-PCR NOT DETECTED (NOT DETECTED)
== END 2022-10-23 16:15 | disposition home or self-care (01) ==
LOC: HO.ED 16:11
PROVIDERS: Physician Assistant Medical; Emergency Provider Emergency Medicine
DX: S30.861A Insect bite (nonvenomous) of abdominal wall, initial encounter (principal); W57.XXXA Bitten or stung by nonvenomous insect and other nonvenomous arthropods, initial encounter; R10.2 Pelvic and perineal pain; J45.909 Unspecified asthma, uncomplicated; Y93.19 Activity, other involving water and watercraft; Y92.89 Other specified places as the place of occurrence of the external cause; Y99.8 Other external cause status
CPT/HCPCS: 36415; 87798; 87801; 99283

== ENCOUNTER 2022-12-16 08:29 | Emergency (ER) | payer MEDICARE, MEDICAID, SELFPAY ==
--- NOTE | ~2022-12-16 | US_ITS ---
EXAM: Pelvic Ultrasound CLINICAL INDICATION: Pelvic pain COMPARISON: None available TECHNIQUE: The pelvis was evaluated using transabdominal and transvaginal imaging. Color Doppler imaging and spectral analysis of the bilateral ovaries was also performed. FINDINGS: The uterus measures 7.5 x 3.3 x 4.4 cm in longitudinal by AP by transverse dimension. The endometrial stripe is not thickened and measures 0.5 cm. Nabothian cysts noted within the cervix. The left ovary measures approximately 2.2 x 1.6 x 2.4 cm and is normal. The right ovary measures approximately 2.0 x 1.2 x 1.1 cm and is also normal. Spectral analysis reveals normal arterial and venous waveforms in the bilateral ovaries. There are no abnormal adnexal masses. There is no free fluid in the pelvis. US/US pelvic and transvaginal IMPRESSION: Unremarkable sonographic imaging of the pelvis.
--- NOTE | ~2022-12-16 | US_ITS ---
EXAM: Pelvic Ultrasound CLINICAL INDICATION: Pelvic pain COMPARISON: None available TECHNIQUE: The pelvis was evaluated using transabdominal and transvaginal imaging. Color Doppler imaging and spectral analysis of the bilateral ovaries was also performed. FINDINGS: The uterus measures 7.5 x 3.3 x 4.4 cm in longitudinal by AP by transverse dimension. The endometrial stripe is not thickened and measures 0.5 cm. Nabothian cysts noted within the cervix. The left ovary measures approximately 2.2 x 1.6 x 2.4 cm and is normal. The right ovary measures approximately 2.0 x 1.2 x 1.1 cm and is also normal. Spectral analysis reveals normal arterial and venous waveforms in the bilateral ovaries. There are no abnormal adnexal masses. There is no free fluid in the pelvis. US/US pelvic ovarian doppler IMPRESSION: Unremarkable sonographic imaging of the pelvis.
[2022-12-16 08:37] VITALS: BP 146/62; PULSE 53; RESP 18; TEMP 36.6; O2SAT 98; BMI 43.8
[2022-12-16 09:27] VITALS: BP 111/49; PULSE 46; RESP 17; TEMP 36.7; O2SAT 97
[2022-12-16 10:09] LABS: MANUAL DIFF FLAG NO
[2022-12-16 10:18] LABS: Basophils Absolute Auto 0.1 X10*3/uL (0.0-0.2); Basophils Percent Auto 0.6 % (0-2); Eosinophils Absolute Auto 0.2 X10*3/uL (0.0-0.4); Eosinophils Percent Auto 1.8 % (0-4); Hematocrit 44.6 % (37.0-47.0); Hemoglobin 14.8 g/dl (12.0-16.0); Imm Gran Abs Auto 0.02 X10*3/uL (0.00-0.03); Imm Gran Pct Auto 0.2 % (0.0-0.4); Lymphocytes Absolute Auto 1.6 X10*3/uL (1.2-4.9); Lymphocytes Percent Auto 18.4 % (20-40); Mean Corpuscular HGB Conc 33.2 g/dl (31.0-35.0); Mean Corpuscular Hemoglobin 31.1 pg (27.0-33.0); Mean Corpuscular Volume 93.7 fL (80.0-98.0); Monocytes Absolute Auto 0.4 X10*3/uL (0.1-1.2); Monocytes Percent Auto 4.1 % (2-11); Neutrophils Absolute Auto 6.5 x10*3/uL (2.0-8.3); Neutrophils Percent Auto 74.9 % (45-73); Platelet Count 194 X10*3/uL (160-400); Red Blood Count 4.76 X10*6/uL (4.20-5.50); White Blood Count 8.7 X10*3/uL (4.8-10.8)
[2022-12-16] MEDS: Ketorolac Tromethamine 30 MG/ML VIAL IVPUSH (10:35)
--- NOTE | 2022-12-16 10:37 | ED_ITS ---
HPI - General Adult General Chief complaint: General Medical Stated complaint: pull back and lower abd pain Time Seen by Provider: 12/16/22 10:02 Source: patient Mode of arrival: ambulatory Limitations: no limitations History of Present Illness HPI narrative: 32 yo female with history of asthma, sciatica, obesity who presents to the ER for evaluation of pelvic pain since yesterday. She states the pain is cramping and she initially thought it was gas but it never went away. She states she is moving her bowels normally, denies any nausea, vomiting. She thinks she might have an ovarian cyst. She denies any vaginal discharge or vaginal bleeding. She last had sexual intercourse 1 week ago, however denies any chance of . She states she started her mental cycle 3 days ago and is already over. MD complaint: pelvic pain Onset (ago): day(s) (1) Location: pelvis Radiation: non-radiation Severity: moderate Quality: other (Cramping) Pain Consistency: intermittent Relieving factors: none Exacerbating factors: none Associated symptoms: denies other symptoms Treatments prior to arrival: none Related Data Previous Rx's Medication Instructions Recorded acetaminophen 500 mg tablet 500 mg PO Q6H PRN pain or fever 08/22/20 (Tylenol Extra Strength) #20 tabs naproxen 500 mg tablet 500 mg PO BID PRN pain 10 days #20 08/22/20 tabs cyclobenzaprine 10 mg tablet 10 mg PO TID PRN muscle spasm #10 01/08/21 tabs ibuprofen 800 mg tablet 800 mg PO Q8H PRN pain #15 tabs 01/08/21 polymyxin B sulfate 10,000 1 drp ophthalmic-Left Q3H 7 days 08/20/21 unit-trimethoprim 1 mg/mL eye #10 mL drops (Polytrim) acetaminophen 500 mg tablet 500 mg PO Q6H PRN pain or fever 09/24/21 (Tylenol Extra Strength) #20 tabs cyclobenzaprine 5 mg tablet 5 mg PO Q8H PRN pain (scale score 09/24/21 7-10) 5 days #14 tabs lidocaine 5 % topical patch 1 patch topical DAILY PRN pain #30 09/24/21 (Lidoderm) ea naproxen 500 mg tablet 500 mg PO BID PRN pain 10 days #20 09/24/21 tabs nitrofurantoin 100 mg PO Q12H 5 days #10 caps 04/28/22 monohydrate/macrocrystals 100 mg capsule (Macrobid) ketorolac 10 mg tablet 10 mg PO Q8H PRN pain 5 days #15 12/16/22 tabs Allergies Allergy/AdvReac Type Severity Reaction Status Date / Time No Known Allergies Allergy Verified 12/16/22 08:37 [No Known Allergies*] Review of Systems Review of Systems: Yes all other systems are reviewed and are negative [facility] Past Medical History Medical History Asthma Social History Social History Alcohol intake: never Substance Use Type: Marijuana Advance Directives: No Advance Directives Information Provided: Yes Physical Exam ED Vital Signs: Vital Signs - 24 hr 12/16/22 08:37 12/16/22 09:27 Temperature 98 F 98.1 F Pulse Rate 53 46 L Respiratory Rate 18 17 Blood Pressure 146/62 H 111/49 L Pulse Oximetry 98 97 Oxygen Delivery Method Room Air Room Air BMI result Body Mass Index 43.8 Appearance: Alert. Oriented X3. No acute distress. Head: normocephalic, atraumatic. Eyes: Pupils equal, round and reactive to light. ENT: Pharynx normal. No tonsillar swelling or exudate. Neck: Normal inspection. Neck supple. CVS: Normal heart rate and rhythm. Pulses normal. Respiratory: No respiratory distress. Breath sounds normal. Abdomen: Obese, Soft and nontender. +BS x4. Pelvic deferred Skin: Skin warm and dry. Normal skin color. Normal skin turgor. No rashes. Extremities: No lower extremity edema. No joint swelling. Neuro/psych: Oriented X 3. No motor deficit. No sensory deficit. CN II-XII intact. Normal speech and cognition. Medications Administered Discontinued Medications Generic Name Dose Route Start Last Admin Trade Name Freq PRN Reason Stop Dose Admin Ketorolac Tromethamine 30 mg 12/16/22 10:22 12/16/22 10:35 Ketorolac Tromethamine 30 Mg/Ml Vial IVPUSH 12/16/22 10:23 30 mg ONCE ONE Administration Medical Decision Making Medical Decision Making MDM Narrative: 32-year-old female presents to the ER for evaluation of pelvic cramping and lower abdominal pain for the last 1 day. Her urinalysis is negative for infection and . Her lab work is unremarkable. Pelvic ultrasound today was unremarkable, no evidence of ovarian cyst or torsion. She was given a dose of Toradol with complete resolution of her pain. Her cramping is most likely due to residual menstrual cramping. She is stable for discharge home. She was given OBGYN referral as she does not have 1 and when she would like to establish care. Stable for discharge. Differential Diagnosis Differential Diagnoses: The differential diagnosis associated with the presentation includes Menstrual cramps, ovarian cyst, ovarian torsion, PID, STI, UTI, gas pain, constipation, TOA Lab Data MDM Lab Attestation statement: I reviewed the patient's lab results. Normal CBC, no major metabolic derangement 12/16/22 10:04 12/16/22 10:04 Labs: Lab Results 12/16/22 12/16/22 12/16/22 Range/Units 10:04 10:04 10:36 WBC 8.7 (4.8-10.8) X10*3/uL RBC 4.76 (4.20-5.50) X10*6/uL Hgb 14.8 (12.0-16.0) g/dl Hct 44.6 (37.0-47.0) % MCV 93.7 (80.0-98.0) fL MCH 31.1 (27.0-33.0) pg MCHC 33.2 (31.0-35.0) g/dl RDW 13.0 (11.0-16.0) % Plt Count 194 (160-400) X10*3/uL MPV 11.0 (9.4-12.3) fL Immature Gran % (Auto) 0.2 (0.0-0.4) % Neut % (Auto) 74.9 H (45-73) % Lymph % (Auto) 18.4 L (20-40) % Ray % (Auto) 4.1 (2-11) % Eos % (Auto) 1.8 (0-4) % Baso % (Auto) 0.6 (0-2) % Lymph # (Auto) 1.6 (1.2-4.9) X10*3/uL Ray # (Auto) 0.4 (0.1-1.2) X10*3/uL Eos # (Auto) 0.2 (0.0-0.4) X10*3/uL Baso # (Auto) 0.1 (0.0-0.2) X10*3/uL Abs Immat Gran (auto) 0.02 (0.00-0.03) X10*3/uL Absolute Neuts (auto) 6.5 (2.0-8.3) x10*3/uL Absolute Nucleated RBC 0.000 (0.0-0.012) X10*3/uL Nucleated RBC % (auto) 0.0 (0.0-0.2) /100WBC Sodium 136 (135-145) mmol/L Potassium 5.6 H D (3.3-5.1) mmol/L Chloride 107 (96-108) mmol/L Carbon Dioxide 22 (22-29) mmol/L Anion Gap 13 (12-20) BUN 14 (9-16) mg/dL Creatinine 0.78 (0.5-1.4) mg/dL Estim Creat Clear Calc 145.3 Estimated GFR > 60 Random Glucose 101 (60-115) mg/dL Calcium 9.1 (8.4-10.2) mg/dL Total Bilirubin 0.6 (0.0-1.0) mg/dL AST 34 H (5-31) U/L ALT 29 (0-31) U/L Alkaline Phosphatase 76 (39-117) U/L Total Protein 8.1 H (6.5-8.0) g/dL Albumin 4.1 (3.5-5.0) g/dL Urine Color Yellow Urine Appearance Clear Urine pH 8.5 (5.0-9.0) Ur Specific [place] 1.015 (1.005-1.025) Urine Protein Negative (Neg-Trace) mg/dL Urine Glucose (UA) Negative (Negative) mg/dL Urine Ketones Negative (Negative) mg/dL Urine Blood Negative (Negative) Urine Nitrite Negative (Negative) Ur Leukocyte Esterase Negative (Negative) Urine Test (NEGATIVE) 12/16/22 Range/Units 10:36 WBC (4.8-10.8) X10*3/uL RBC (4.20-5.50) X10*6/uL Hgb (12.0-16.0) g/dl Hct (37.0-47.0) % MCV (80.0-98.0) fL MCH (27.0-33.0) pg MCHC (31.0-35.0) g/dl RDW (11.0-16.0) % Plt Count (160-400) X10*3/uL MPV (9.4-12.3) fL Immature Gran % (Auto) (0.0-0.4) % Neut % (Auto) (45-73) % Lymph % (Auto) (20-40) % Ray % (Auto) (2-11) % Eos % (Auto) (0-4) % Baso % (Auto) (0-2) % Lymph # (Auto) (1.2-4.9) X10*3/uL Ray # (Auto) (0.1-1.2) X10*3/uL Eos # (Auto) (0.0-0.4) X10*3/uL Baso # (Auto) (0.0-0.2) X10*3/uL Abs Immat Gran (auto) (0.00-0.03) X10*3/uL Absolute Neuts (auto) (2.0-8.3) x10*3/uL Absolute Nucleated RBC (0.0-0.012) X10*3/uL Nucleated RBC % (auto) (0.0-0.2) /100WBC Sodium (135-145) mmol/L Potassium (3.3-5.1) mmol/L Chloride (96-108) mmol/L Carbon Dioxide (22-29) mmol/L Anion Gap (12-20) BUN (9-16) mg/dL Creatinine (0.5-1.4) mg/dL Estim Creat Clear Calc Estimated GFR Random Glucose (60-115) mg/dL Calcium (8.4-10.2) mg/dL Total Bilirubin (0.0-1.0) mg/dL AST (5-31) U/L ALT (0-31) U/L Alkaline Phosphatase (39-117) U/L Total Protein (6.5-8.0) g/dL Albumin (3.5-5.0) g/dL Urine Color Urine Appearance Urine pH (5.0-9.0) Ur Specific [place] (1.005-1.025) Urine Protein (Neg-Trace) mg/dL Urine Glucose (UA) (Negative) mg/dL Urine Ketones (Negative) mg/dL Urine Blood (Negative) Urine Nitrite (Negative) Ur Leukocyte Esterase (Negative) Urine Test NEGATIVE (NEGATIVE) Independent Interpretation I performed an independent interpretation of an: Ultrasound Interpretation: No appreciated large ovarian cyst, agree with radiologist's read Radiology Impression Discussion of test interpretation with radiology: I have reviewed the radiolo gist's reading. Radiologist Impression: US/US pelvic and transvaginal IMPRESSION: Unremarkable sonographic imaging of the pelvis. External Record Review External record reviewed: Outpatient record, Prior outpatient labs and Prior outpatient radiology Prescription Management I considered prescription management with: Pain Medication Critical Care Time Critical Care Time Critical Care Time: No Discharge Plan Discharge Clinical Impression: Abdominal cramping Patient Disposition: Home, Self-Care Instructions: Abdominal Pain (ED) Additional Instructions: Your lab workup, urinalysis, pelvic ultrasound today were all unremarkable. Take the prescribed medication as needed for cramping pains. Recommend following up with your primary care doctor as well as OBGYN to establish care. If you develop new or worsening symptoms call 911 or come back to the ER for further evaluation. Prescriptions: New ketorolac 10 mg tablet 10 mg PO Q8H PRN (Reason: pain) 5 Days Qty: 15 0RF No Action acetaminophen [Tylenol Extra Strength] 500 mg tablet 500 mg PO Q6H PRN (Reason: pain or fever) Qty: 20 0RF naproxen 500 mg tablet 500 mg PO BID PRN (Reason: pain) 10 Days Qty: 20 0RF ibuprofen 800 mg tablet 800 mg PO Q8H PRN (Reason: pain) Qty: 15 0RF Rx Instructions: supervising MD Rere Ansari cyclobenzaprine 10 mg tablet 10 mg PO TID PRN (Reason: muscle spasm) Qty: 10 0RF Rx Instructions: supervising MD Barbara Ansari polymyxin B sulf-trimethoprim [Polytrim] 10,000 unit- 1 mg/mL drops 1 drp ophthalmic-Left Q3H 7 Days Qty: 10 0RF Rx Instructions: while awake; do not exceed 6 doses in 24 hours lidocaine [Lidoderm] 5 % adhesive patch,medicated 1 patch topical DAILY MDD remove after 12 hours PRN (Reason: pain) Qty: 30 0RF Rx Instructions: leave on most painful area for up to 12 hrs cyclobenzaprine 5 mg tablet 5 mg PO Q8H PRN (Reason: pain (scale score 7-10)) 5 Days Qty: 14 0RF acetaminophen [Tylenol Extra Strength] 500 mg tablet 500 mg PO Q6H PRN (Reason: pain or fever) Qty: 20 0RF naproxen 500 mg tablet 500 mg PO BID PRN (Reason: pain) 10 Days Qty: 20 0RF nitrofurantoin monohyd/m-cryst [Macrobid] 100 mg capsule 100 mg PO Q12H 5 Days Qty: 10 0RF Rx Instructions: must administer with a meal/food [place] [facility] [place] [facility] [place] [place] Interventions: ED Discharge Assessment Last Done: 12/16/22 13:07 Discharge Date/Time: 12/16/22 13:08
[2022-12-16 10:43] LABS: Appearance Urine Clear; Color Urine Yellow; Glucose Urine UA Negative (Negative); Leukocyte Esterase Urine Negative (Negative); Nitrite Urine Negative (Negative); PH 8.5 (5.0-9.0); Specific Gravity - Urine 1.015 (1.005-1.025); Urine Blood Negative (Negative); Urine Ketones Negative (Negative); Urine Protein Negative (Neg-Trace)
[2022-12-16 10:44] LABS: Alanine Aminotransferase 29 U/L (0-31); Albumin Level 4.1 g/dL (3.5-5.0); Alkaline Phosphatase 76 U/L (39-117); Anion Gap 13 (12-20); Aspartate Amino Transferase 34 U/L (5-31); Bilirubin Total 0.6 mg/dL (0.0-1.0); Blood Urea Nitrogen 14 mg/dL (9-16); Calcium 9.1 mg/dL (8.4-10.2); Carbon Dioxide 22 mmol/L (22-29); Chloride 107 mmol/L (96-108); Creatinine Clr Calc Pharmacy 145.3; Estimated Glomerular Filt Rate > 60; Glucose Random 101 mg/dL (60-115); Potassium 5.6 mmol/L (3.3-5.1); Sodium 136 mmol/L (135-145); Total Protein 8.1 g/dL (6.5-8.0)
--- NOTE | 2022-12-16 10:58 | PC.NURSE ---
pt in ultrasound
[2022-12-16 11:59] LABS: UPreg QC Valid YES; Urine Pregnancy NEGATIVE (NEGATIVE)
== END 2022-12-16 13:08 | disposition home or self-care (01) ==
PROVIDERS: Physician Assistant; Emergency Provider Emergency Medicine Emergency Medical Services
DX: R10.30 Lower abdominal pain, unspecified (principal); R10.2 Pelvic and perineal pain; Z79.899 Other long term (current) drug therapy
CPT/HCPCS: 36415; 76830; 76856; 80053; 81003; 81025; 85025; 93975; 96374; 99284; J1885

== ENCOUNTER 2023-07-31 13:52 | Emergency (ER) | payer MEDICAID, SELFPAY ==
[2023-07-31 15:30] VITALS: BP 134/62; PULSE 55; RESP 16; TEMP 36.8; O2SAT 100; BMI 42.5
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
[2023-07-31] MEDS: Diphth,Pertus(ACell),Tet Adult 0.5 ML SYRINGE IM (17:19)
[2023-07-31] MEDS: Lidocaine HCl 1 % MPF 5 ML VIAL INFILTRATI (17:20)
== END 2023-07-31 18:45 | disposition home or self-care (01) ==
PROVIDERS: Emergency Provider Internal Medicine
DX: S61.411A Laceration without foreign body of right hand, initial encounter (principal); S80.811A Abrasion, right lower leg, initial encounter; Y04.0XXA Assault by unarmed brawl or fight, initial encounter; Y93.89 Activity, other specified; Y92.9 Unspecified place or not applicable; Y99.9 Unspecified external cause status; Z23 Encounter for immunization
CPT/HCPCS: 12001; 90471; 90715; 99282; 99284

== ENCOUNTER 2024-07-24 11:20 | Emergency (ER) | payer OTHER, SELFPAY ==
--- NOTE | ~2024-07-24 | XR_ITS ---
EXAMINATION: XR CHEST CLINICAL INFORMATION: coughing. Pneumnia? COMPARISON: None available. TECHNIQUE: Frontal view of the chest was obtained. FINDINGS: No consolidation, pleural effusion or pneumothorax. Cardiomediastinal silhouette is normal. Multilevel thoracic spondylosis. XR/XR chest 1V IMPRESSION: No acute airspace disease. Electronically signed by: Yung Ag MD 07/24/2024 12:07 PM [facility] [place]
[2024-07-24 11:40] VITALS: BP 104/38; PULSE 57; RESP 18; TEMP 36.3; O2SAT 98; BMI 42.7
--- NOTE | 2024-07-24 11:45 | ED_ITS ---
HPI - General Adult General Chief complaint: Upper Respiratory Symptoms Stated complaint: SOB, body aches Time Seen by Provider: 07/24/24 13:35 Source: patient Mode of arrival: ambulatory Limitations: no limitations History of Present Illness ED Provider: Dean Bailey HPI narrative: 34-year-old female healthy presents to the ED for URI symptoms. Patient states nasal congestion and cough since yesterday. Patient denies any chest pain, shortness of breath, leg swelling, calf pain, or pleurisy. Related Data Previous Rx's ?Medication ?Instructions ?Recorded acetaminophen 500 mg tablet 500 mg PO Q6H PRN pain or fever 08/22/20 (Tylenol Extra Strength) #20 tabs naproxen 500 mg tablet 500 mg PO BID PRN pain 10 days #20 08/22/20 tabs cyclobenzaprine 10 mg tablet 10 mg PO TID PRN muscle spasm #10 01/08/21 tabs ibuprofen 800 mg tablet 800 mg PO Q8H PRN pain #15 tabs 01/08/21 polymyxin B sulfate 10,000 1 drp ophthalmic-Left Q3H 7 days 08/20/21 unit-trimethoprim 1 mg/mL eye #10 mL drops (Polytrim) acetaminophen 500 mg tablet 500 mg PO Q6H PRN pain or fever 09/24/21 (Tylenol Extra Strength) #20 tabs cyclobenzaprine 5 mg tablet 5 mg PO Q8H PRN pain (scale score 09/24/21 7-10) 5 days #14 tabs lidocaine 5 % topical patch 1 patch topical DAILY PRN pain #30 09/24/21 (Lidoderm) ea naproxen 500 mg tablet 500 mg PO BID PRN pain 10 days #20 09/24/21 tabs nitrofurantoin 100 mg PO Q12H 5 days #10 caps 04/28/22 monohydrate/macrocrystals 100 mg capsule (Macrobid) ketorolac 10 mg tablet 10 mg PO Q8H PRN pain 5 days #15 12/16/22 tabs Allergies Allergy/AdvReac Type Severity Reaction Status Date / Time No Known Allergies Allergy Verified 07/24/24 11:42 [No Known Allergies*] Review of Systems Review of Systems: Coughing and nasal congestion Yes all other systems are reviewed and are negative PMFSH Past Medical History Medical History Asthma Social History Social History Alcohol intake: never Substance Use Type: Marijuana Advance Directives: No Advance Directives Information Provided: Yes Physical Exam ED Vital Signs: Vital Signs - 24 hr 07/24/24 11:40 07/24/24 15:22 Temperature 97.4 F 97.4 F Pulse Rate 57 57 Respiratory Rate 18 18 Blood Pressure 104/38 L 104/38 L Pulse Oximetry 98 98 Oxygen Delivery Method Room Air Room Air BMI result Body Mass Index 42.7 Const General: cooperative, healthy appearing, comfortable, no acute distress, well developed, alert, awake and Physically active Orientation/consciousness: patient oriented x3 HENMT Head: Yes normal to inspection, Yes No palpable skull fracture present, Yes normocephalic and Yes atraumatic Ears: hearing grossly normal bilaterally, external ears normal, TM's normal bilaterally, TM normal on the right, TM normal on the left, EAC's normal, mast oids normal and no periauricular adenopathy Throat: Yes posterior oropharynx normal, Yes tonsils normal and Yes uvula midline Eyes General: appearance normal, both eyes and all related structures Neck Neck: Yes normal visual inspection, Yes full ROM, Yes no lymphadenopathy, Yes no meningeal signs, Yes trachea midline, Yes supple, No anterior neck swelling and No tender Chest Chest palpation & inspection: normal inspection of the chest and normal palpation of entire chest wall Resp Effort & Inspection: normal respiratory effort and able to speak in complete sentences Auscultation: clear to auscultation bilaterally Cardio Jugular venous distension: no JVD Heart sounds: S1 normal heart sound present and S2 normal heart sound present GI Inspection: Yes normal to inspection Palpation (GI): Soft to palpation, not firm, nontender, no guarding and not rigid General: Yes no CVA tenderness Back/Spine/Pelvis Back: no CVA tenderness and No back tenderness Skin General skin exam: no rashes or lesions noted, elasticity normal and turgor normal Neuro Other: negative for bilateral lower extremity swelling, pitting edema, or calf pain. General: patient oriented x3, gait normal, tone normal, moves all extremities, Normal light touch and pain sensation, no meningeal signs, no focal motor deficits, CN's II-XI intact bilaterally and normal sensation to monofilament Extrem General: Yes normal to inspection, Yes full ROM and Yes capillary refill normal Psych Appearance: grossly normal, well kempt and not disheveled Course Course Course Narrative: RME: 34-year-old female presents to ED for URI symptoms consisting of cough, body aches, for a couple of days. Patient's vital signs are stable lungs are clear. SARs strep x-ray ordered. Medical Decision Making Medical Decision Making MDM Narrative: 34 yold female presents to the ED with URI symptoms. Chest xray ordered. Patient postiive for RSV. Patient is not in any respiratory distress. Not susepctng GA, CHF, pericarditits, myocarditits, or respiratory failure. patient explained worrisome signs and informed to return to the ED immeidatley. Differential Diagnosis Differential Diagnoses: The differential diagnosis associated with the presentation includes (pneumonia, strep, covid) Admission/Observation Consideration of admission/observation: Escalation of care including admission/observation considered Lab Data MDM Lab Attestation statement: I reviewed the patient's lab results. Labs: Lab Results 07/24/24 Range/Units 13:04 Influenza Type A (PCR) NEGATIVE (Negative) Influenza Type B (PCR) NEGATIVE (Negative) RSV RNA Qual (PCR) POSITIVE A (Negative) SARS-CoV-2 RNA (RT-PCR) NEGATIVE (Negative) S. pyogenes GrpA JACQUELYN Negative (Negative) Independent Interpretation I performed an independent interpretation of an: Plain X-Ray Radiology Impression Discussion of test interpretation with radiology: I have reviewed the radiologist's reading. Independent Historian Clinical information obtained from an independent historian. History obtained from or confirmed by: Other (patient) External Record Review External record reviewed: Other (prior visits) Prescription Management I considered prescription management with: Pain Medication Discharge Plan Discharge Clinical Impression: Respiratory syncytial virus (RSV) Patient Disposition: Home, Self-Care Instructions: Respiratory Syncytial Virus (ED) Additional Instructions: You came back positive for RSV. Recommend follow-up with your primary care provider. Return to the ED immediately for any chest pain, shortness of breath, weakness, dizziness, or any other concerning symptoms. Prescriptions: No Action acetaminophen [Tylenol Extra Strength] 500 mg tablet 500 mg PO Q6H PRN (Reason: pain or fever) Qty: 20 0RF naproxen 500 mg tablet 500 mg PO BID PRN (Reason: pain) 10 Days Qty: 20 0RF ibuprofen 800 mg tablet 800 mg PO Q8H PRN (Reason: pain) Qty: 15 0RF Rx Instructions: supervising MD Rere Ansari cyclobenzaprine 10 mg tablet 10 mg PO TID PRN (Reason: muscle spasm) Qty: 10 0RF Rx Instructions: supervising MD Barbara Ansari polymyxin B sulf-trimethoprim [Polytrim] 10,000 unit- 1 mg/mL drops 1 drp ophthalmic-Left Q3H 7 Days Qty: 10 0RF Rx Instructions: while awake; do not exceed 6 doses in 24 hours lidocaine [Lidoderm] 5 % adhesive patch,medicated 1 patch topical DAILY MDD remove after 12 hours PRN (Reason: pain) Qty: 30 0RF Rx Instructions: leave on most painful area for up to 12 hrs cyclobenzaprine 5 mg tablet 5 mg PO Q8H PRN (Reason: pain (scale score 7-10)) 5 Days Qty: 14 0RF acetaminophen [Tylenol Extra Strength] 500 mg tablet 500 mg PO Q6H PRN (Reason: pain or fever) Qty: 20 0RF naproxen 500 mg tablet 500 mg PO BID PRN (Reason: pain) 10 Days Qty: 20 0RF nitrofurantoin monohyd/m-cryst [Macrobid] 100 mg capsule 100 mg PO Q12H 5 Days Qty: 10 0RF Rx Instructions: must administer with a meal/food ketorolac 10 mg tablet 10 mg PO Q8H PRN (Reason: pain) 5 Days Qty: 15 0RF Stand Alone Forms: Work/School Release Interventions: ED Discharge Assessment Last Done: 07/24/24 15:22 Discharge Date/Time: 07/24/24 15:22 Print Language: Spanish
[2024-07-24 13:24] LABS: IDNOW Serial# 58CA691E; Strep A Nucleic Acid Negative (Negative)
[2024-07-24 14:02] LABS: Influenza A PCR NEGATIVE (Negative); Influenza B PCR NEGATIVE (Negative); Resp Syncy Virus RNA Qual PCR POSITIVE (Negative); SARS COV2 PCR INHOUSE NEGATIVE (Negative)
[2024-07-24 15:22] VITALS: BP 104/38; PULSE 57; RESP 18; TEMP 36.3; O2SAT 98
== END 2024-07-24 15:22 | disposition home or self-care (01) ==
PROVIDERS: Physician Assistant; Emergency Provider Emergency Medicine
DX: J22 Unspecified acute lower respiratory infection (principal); R06.02 Shortness of breath; M79.10 Myalgia, unspecified site; R05.9 Cough, unspecified; R09.81 Nasal congestion; Z03.818 Encounter for observation for suspected exposure to other biological agents ruled out
CPT/HCPCS: 0241U; 71045; 87651; 99282; 99283

== ENCOUNTER → 2024-07-24 11:42 | Outpatient (BNV) | payer MEDICAID, SELFPAY | PROVIDERS: Visit Provider Radiology Diagnostic Radiology | DX: R05.9 Cough, unspecified (principal) | CPT/HCPCS: 71045 ==

== ENCOUNTER 2024-08-09 14:07 | Emergency (ER) | payer OTHER, SELFPAY ==
[2024-08-09 14:25] VITALS: BP 121/66; PULSE 59; RESP 16; TEMP 36.5; O2SAT 97; BMI 41.6
--- NOTE | 2024-08-09 14:25 | ED_ITS ---
HPI - General Adult General Chief complaint: Dental/Oral Stated complaint: broken tooth infection Time Seen by Provider: 08/09/24 14:25 Source: patient, RN notes reviewed and old records reviewed Mode of arrival: ambulatory Limitations: no limitations History of Present Illness ED Provider: Laila DURHAM narrative: 34-year-old female presents for evaluation of facial pain. Patient reports that she has had a broken tooth to the right upper incisor for quite some time. She states 2 days ago she noticed mild discomfort to the area which seemed to be worsening today. She has some pain and swelling extending towards her ear Denies any fevers or chills Related Data Previous Rx's ?Medication ?Instructions ?Recorded acetaminophen 500 mg tablet 500 mg PO Q6H PRN pain or fever 08/22/20 (Tylenol Extra Strength) #20 tabs naproxen 500 mg tablet 500 mg PO BID PRN pain 10 days #20 08/22/20 tabs cyclobenzaprine 10 mg tablet 10 mg PO TID PRN muscle spasm #10 01/08/21 tabs ibuprofen 800 mg tablet 800 mg PO Q8H PRN pain #15 tabs 01/08/21 polymyxin B sulfate 10,000 1 drp ophthalmic-Left Q3H 7 days 08/20/21 unit-trimethoprim 1 mg/mL eye #10 mL drops (Polytrim) acetaminophen 500 mg tablet 500 mg PO Q6H PRN pain or fever 09/24/21 (Tylenol Extra Strength) #20 tabs cyclobenzaprine 5 mg tablet 5 mg PO Q8H PRN pain (scale score 09/24/21 7-10) 5 days #14 tabs lidocaine 5 % topical patch 1 patch topical DAILY PRN pain #30 09/24/21 (Lidoderm) ea naproxen 500 mg tablet 500 mg PO BID PRN pain 10 days #20 09/24/21 tabs nitrofurantoin 100 mg PO Q12H 5 days #10 caps 04/28/22 monohydrate/macrocrystals 100 mg capsule (Macrobid) ketorolac 10 mg tablet 10 mg PO Q8H PRN pain 5 days #15 12/16/22 tabs amoxicillin 500 mg tablet 500 mg PO Q8H #21 tabs 08/09/24 Allergies Allergy/AdvReac Type Severity Reaction Status Date / Time No Known Allergies Allergy Verified 08/09/24 14:27 [No Known Allergies*] Review of Systems Constitutional: Constitutional: Denies body ache(s), Denies chills, Denies fever(s) and Denies headache(s) ENT: Reports facial pain, Denies headache(s) and Denies sore throat Cardiovascular: Cardiovascular: Denies chest pain and Denies dyspnea Respiratory: Respiratory: Denies cough and Denies dyspnea Neurologic: Denies headache(s) [facility] Past Medical History Medical History Asthma Social History Social History Alcohol intake: never Substance Use Type: Marijuana Advance Directives: No Advance Directives Information Provided: Yes Physical Exam ED Vital Signs: Vital Signs - 24 hr 08/09/24 14:25 08/09/24 14:28 Temperature 97.7 F 97.7 F Pulse Rate 59 59 Respiratory Rate 16 16 Blood Pressure 121/66 121/66 Pulse Oximetry 97 97 Oxygen Delivery Method Room Air Room Air BMI result Body Mass Index 41.6 Const General: healthy appearing, comfortable, no acute distress, alert and awake Nutritional Appearance: well nourished Orientation/consciousness: patient oriented x3 HENMT Other: Dental fracture to tooth 5. Dentin exposed. Minimal surrounding erythema, no evident abscess. No obvious facial edema Head: Yes normocephalic and Yes atraumatic Throat: Yes posterior oropharynx normal Eyes Eyelids: Yes eyelids normal Conjunctivae: conjunctivae normal Sclerae: sclerae normal Corneas: corneas normal Pupils: Equal, round and reactive pupils present EOM: EOMs intact bilaterally Neck Neck: Yes full ROM Resp Effort & Inspection: normal respiratory effort, able to speak in complete sentences and not labored Skin General skin exam: elasticity normal Neuro General: patient oriented x3 Cranial nerves: Yes Equal, round and reactive pupils present and Yes Bilaterally intact EOM present Cognition (Neuro): normal cognition Extrem Other: Moving all extremities well without any obvious deformities Medical Decision Making Medical Decision Making MDM Narrative: 34-year-old female presents for evaluation of right facial pain and swelling. She is a known dental fracture that is obvious on exam, she appears to have a developing infection in the area, no obvious drainable abscess. We will treat with amoxicillin and she will be referred to her dentist for definitive treatment Differential Diagnosis Differential Diagnoses: The differential diagnosis associated with the presentation includes Dental caries Dental abscess Facial pain Dental fracture Discharge Plan Discharge Clinical Impression: Atypical face pain, Dental trauma Patient Disposition: Home, Self-Care Instructions: Acute Dental Trauma (ED), Atypical Facial Pain (ED) Additional Instructions: Take the amoxicillin 3 times daily for 1 week. You may also apply warm compresses to the painful area. Follow-up with dentist as soon as possible Return for new or worsening symptoms Prescriptions: New amoxicillin 500 mg tablet 500 mg PO Q8H Qty: 21 0RF No Action acetaminophen [Tylenol Extra Strength] 500 mg tablet 500 mg PO Q6H PRN (Reason: pain or fever) Qty: 20 0RF naproxen 500 mg tablet 500 mg PO BID PRN (Reason: pain) 10 Days Qty: 20 0RF ibuprofen 800 mg tablet 800 mg PO Q8H PRN (Reason: pain) Qty: 15 0RF Rx Instructions: supervising MD Rere Ansari cyclobenzaprine 10 mg tablet 10 mg PO TID PRN (Reason: muscle spasm) Qty: 10 0RF Rx Instructions: supervising MD Barbara Ansari polymyxin B sulf-trimethoprim [Polytrim] 10,000 unit- 1 mg/mL drops 1 drp ophthalmic-Left Q3H 7 Days Qty: 10 0RF Rx Instructions: while awake; do not exceed 6 doses in 24 hours lidocaine [Lidoderm] 5 % adhesive patch,medicated 1 patch topical DAILY MDD remove after 12 hours PRN (Reason: pain) Qty: 30 0RF Rx Instructions: leave on most painful area for up to 12 hrs cyclobenzaprine 5 mg tablet 5 mg PO Q8H PRN (Reason: pain (scale score 7-10)) 5 Days Qty: 14 0RF acetaminophen [Tylenol Extra Strength] 500 mg tablet 500 mg PO Q6H PRN (Reason: pain or fever) Qty: 20 0RF naproxen 500 mg tablet 500 mg PO BID PRN (Reason: pain) 10 Days Qty: 20 0RF nitrofurantoin monohyd/m-cryst [Macrobid] 100 mg capsule 100 mg PO Q12H 5 Days Qty: 10 0RF Rx Instructions: must administer with a meal/food ketorolac 10 mg tablet 10 mg PO Q8H PRN (Reason: pain) 5 Days Qty: 15 0RF Stand Alone Forms: Work/School Release Interventions: ED Discharge Assessment Last Done: 08/09/24 14:28 Discharge Date/Time: 08/09/24 14:30 Print Language: Namibian
[2024-08-09 14:28] VITALS: BP 121/66; PULSE 59; RESP 16; TEMP 36.5; O2SAT 97
== END 2024-08-09 14:30 | disposition home or self-care (01) ==
LOC: HO.ED 14:29
PROVIDERS: Emergency Provider Emergency Medicine
DX: R51.9 Headache, unspecified (principal); S02.5XXA Fracture of tooth (traumatic), initial encounter for closed fracture; X58.XXXA Exposure to other specified factors, initial encounter; Y93.9 Activity, unspecified; Y92.9 Unspecified place or not applicable; Y99.9 Unspecified external cause status
CPT/HCPCS: 99282; 99283

== ENCOUNTER 2024-12-16 12:55 | Emergency (ER) | payer OTHER, SELFPAY ==
--- NOTE | ~2024-12-16 | XR_ITS ---
CLINICAL HISTORY: pain, injury 3 view left hand Comparison: None Findings: No fractures or dislocations. No significant loss of joint space or osteophytes. No erosions. No radiopaque foreign body. IMPRESSION: 1. No acute findings This document has been electronically signed by: Roland Tellez MD on 12/16/2024 13:49:48
--- NOTE | ~2024-12-16 | XR_ITS ---
CLINICAL HISTORY: pain, injury 4 view left wrist Comparison: None Findings: No fractures or dislocations. No significant arthritic change or erosions. No radiopaque foreign body. IMPRESSION: 1. No acute findings This document has been electronically signed by: Roland Tellez MD on 12/16/2024 13:50:10
[2024-12-16 13:01] VITALS: BP 130/48; PULSE 59; RESP 16; TEMP 36.3; O2SAT 100; BMI 41.8
--- NOTE | 2024-12-16 13:02 | ED_ITS ---
HPI - General Adult General Chief complaint: Extremity Injury, Upper Stated complaint: L arm pain Time Seen by Provider: 12/16/24 13:11 Source: patient and old records reviewed Mode of arrival: ambulatory Limitations: no limitations History of Present Illness ED Provider: SCARLET DURHAM narrative: 34 yo female who is R handed went to go on her bed today and she sort of threw herself on it and landed on L hand and wrist she now has a pain in the L wrist. No numnbess, weakness, no other injuries. complaint: L hand/wrist injury Onset (ago): day(s) (today) Location: left and upper extremity Radiation: non-radiation Severity: mild Quality: aching and sharp Pain Consistency: intermittent Relieving factors: immobilization Exacerbating factors: movement Associated symptoms: denies other symptoms Treatments prior to arrival: none Related Data Previous Rx's ?Medication ?Instructions ?Recorded acetaminophen 500 mg tablet 500 mg PO Q6H PRN pain or fever 08/22/20 (Tylenol Extra Strength) #20 tabs naproxen 500 mg tablet 500 mg PO BID PRN pain 10 days #20 08/22/20 tabs cyclobenzaprine 10 mg tablet 10 mg PO TID PRN muscle spasm #10 01/08/21 tabs ibuprofen 800 mg tablet 800 mg PO Q8H PRN pain #15 tabs 01/08/21 polymyxin B sulfate 10,000 1 drp ophthalmic-Left Q3H 7 days 08/20/21 unit-trimethoprim 1 mg/mL eye #10 mL drops (Polytrim) acetaminophen 500 mg tablet 500 mg PO Q6H PRN pain or fever 09/24/21 (Tylenol Extra Strength) #20 tabs cyclobenzaprine 5 mg tablet 5 mg PO Q8H PRN pain (scale score 09/24/21 7-10) 5 days #14 tabs lidocaine 5 % topical patch 1 patch topical DAILY PRN pain #30 09/24/21 (Lidoderm) ea naproxen 500 mg tablet 500 mg PO BID PRN pain 10 days #20 09/24/21 tabs nitrofurantoin 100 mg PO Q12H 5 days #10 caps 04/28/22 monohydrate/macrocrystals 100 mg capsule (Macrobid) ketorolac 10 mg tablet 10 mg PO Q8H PRN pain 5 days #15 12/16/22 tabs amoxicillin 500 mg tablet 500 mg PO Q8H #21 tabs 08/09/24 Allergies Allergy/AdvReac Type Severity Reaction Status Date / Time No Known Allergies Allergy Verified 12/16/24 13:03 [No Known Allergies*] Review of Systems Review of Systems: Constitutional : No Fever, No Chills ENT/Mouth : No Ear Pain, No Hoarseness, No sore throat Eyes: No Eye Pain, No Swelling, No Redness, No Foreign Body Cardiovascular : No Chest Pain, No SOB Respiratory : No Cough, No Dyspnea Gastrointestinal : No Nausea, No Vomiting, No Diarrhea, No abdominal Pain Genitourinary : No Dysuria, No Hematuria Musculoskeletal : positive joint pain, No Myalgias, No Joint Swelling Skin : No Skin lacerations, No rash Neuro : No Weakness, No Numbness All other systems reviewed and are negative [facility] Past Medical History Attestation statement: The following information was validated with the patient. Source: old records reviewed Medical History Asthma Social History Social History Alcohol intake: never Substance Use Type: Marijuana Advance Directives: No Advance Directives Information Provided: Yes Do you have a plan to hurt others: No Plan Physical Exam ED Vital Signs: Vital Signs - 24 hr 12/16/24 13:01 12/16/24 14:00 Temperature 97.4 F 97.4 F Pulse Rate 59 59 Respiratory Rate 16 16 Blood Pressure 130/48 L 130/48 L Pulse Oximetry 100 100 BMI result Body Mass Index 41.8 Appearance: Alert. Oriented X3. No acute distress. Eyes: Pupils equal, round and reactive to light. ENT: Pharynx normal. Neck: Normal inspection. Neck supple. CVS: Normal heart rate and rhythm. Pulses normal. Respiratory: No respiratory distress. Breath sounds normal. Abdomen: Soft and nontender. Skin: Skin warm and dry. Normal skin color. Normal skin turgor. Extremities: No lower extremity edema. diffuse wrist ttp but no swelling can make a fist 2+ radial pulse and BCR/SILT throughout digits Neuro: Oriented X 3. No motor deficit. No sensory deficit. CN2-12 intact Course Course Course Narrative: RME performed by Jeanna Alejandre PA-C. Patient is a 34 year old assigned female at presenting to the emergency department with left hand / wrist pain. Patient states her bed is currently on the floor and she went to jump/land on it when she decided last minute to catch herself with her left hand and now her hand and wrist hurt. Detailed physical exam and review of systems are deferred to the practice clinician. Imaging ordered. Patient placed back in the waiting room pending room availability and results. Procedures Orthopedic Splinting/Casting Injury #1: Side: left Upper Extremity Injury Location: wrist Upper Extremity Immobilizer: thumb spica Additional Comments: NV intact Medical Decision Making Medical Decision Making MDM Narrative: 34 yo female R hand dominant here with L hand and wrist injury after hyperextension fall onto soft bed at this time xrays of L hand and wrist ordered, anticipate thumb spica splint if negative, she is NV intact Differential Diagnosis Differential Diagnoses: The differential diagnosis associated with the presentation includes fracture, sprain, strain Independent Interpretation I performed an independent interpretation of an: Plain X-Ray Radiology Impression Discussion of test interpretation with radiology: I have reviewed the radiologist's reading. Discharge Plan Discharge Clinical Impression: Sprain and strain of wrist Patient Disposition: Home, Self-Care Instructions: Sprain (ED), Wrist Sprain (ED) Additional Instructions: xrays show no broken bones wear splint for the next 7 days keep arm elevated if not better in 7 days follow up with your doctor return for any worsening symptoms or concerns splint can be taken off to shower Prescriptions: No Action acetaminophen [Tylenol Extra Strength] 500 mg tablet 500 mg PO Q6H PRN (Reason: pain or fever) Qty: 20 0RF naproxen 500 mg tablet 500 mg PO BID PRN (Reason: pain) 10 Days Qty: 20 0RF ibuprofen 800 mg tablet 800 mg PO Q8H PRN (Reason: pain) Qty: 15 0RF Rx Instructions: supervising MD Rere Ansari cyclobenzaprine 10 mg tablet 10 mg PO TID PRN (Reason: muscle spasm) Qty: 10 0RF Rx Instructions: supervising MD Barbara Ansari polymyxin B sulf-trimethoprim [Polytrim] 10,000 unit- 1 mg/mL drops 1 drp ophthalmic-Left Q3H 7 Days Qty: 10 0RF Rx Instructions: while awake; do not exceed 6 doses in 24 hours lidocaine [Lidoderm] 5 % adhesive patch,medicated 1 patch topical DAILY MDD remove after 12 hours PRN (Reason: pain) Qty: 30 0RF Rx Instructions: leave on most painful area for up to 12 hrs cyclobenzaprine 5 mg tablet 5 mg PO Q8H PRN (Reason: pain (scale score 7-10)) 5 Days Qty: 14 0RF acetaminophen [Tylenol Extra Strength] 500 mg tablet 500 mg PO Q6H PRN (Reason: pain or fever) Qty: 20 0RF naproxen 500 mg tablet 500 mg PO BID PRN (Reason: pain) 10 Days Qty: 20 0RF nitrofurantoin monohyd/m-cryst [Macrobid] 100 mg capsule 100 mg PO Q12H 5 Days Qty: 10 0RF Rx Instructions: must administer with a meal/food amoxicillin 500 mg tablet 500 mg PO Q8H Qty: 21 0RF ketorolac 10 mg tablet 10 mg PO Q8H PRN (Reason: pain) 5 Days Qty: 15 0RF Stand Alone Forms: Work/School Release Interventions: ED Discharge Assessment Last Done: 12/16/24 14:00 Discharge Date/Time: 12/16/24 14:02 Print Language: Zambian
[2024-12-16 14:00] VITALS: BP 130/48; PULSE 59; RESP 16; TEMP 36.3; O2SAT 100
== END 2024-12-16 14:02 | disposition home or self-care (01) ==
PROVIDERS: Emergency Provider Emergency Medicine
DX: S63.502A Unspecified sprain of left wrist, initial encounter (principal); W06.XXXA Fall from bed, initial encounter; Y93.9 Activity, unspecified; Y92.9 Unspecified place or not applicable; Y99.9 Unspecified external cause status; M25.532 Pain in left wrist
CPT/HCPCS: 73110; 73130; 99283; 99284

== ENCOUNTER → 2024-12-16 13:03 | Outpatient (BNV) | payer SELFPAY | PROVIDERS: Emergency Provider Emergency Medicine; Visit Provider Radiology Vascular & Interventional Radiology | DX: M25.532 Pain in left wrist (principal); M79.642 Pain in left hand; S69.92XA Unspecified injury of left wrist, hand and finger(s), initial encounter | CPT/HCPCS: 73110; 73130 ==

== ENCOUNTER 2025-01-23 12:37 | Emergency (ER) | payer MEDICAID, SELFPAY ==
--- NOTE | ~2025-01-23 | US_ITS ---
EXAMINATION: US KIDNEY BILATERAL HISTORY: left flank pain TECHNIQUE: Real-time grayscale ultrasound imaging of the kidneys was performed and images were reviewed. COMPARISON: Correlation is made with a CT of the abdomen with contrast dated 06/18/2018. FINDINGS: Right kidney: The right kidney measures 11.1 x 4.7 x 6.2 cm. Renal parenchymal echotexture and thickness are normal. There are no masses. There is no hydronephrosis or renal calculi. Left Kidney: The left kidney measures 10.8 x 5.2 x 5.6 cm. Renal parenchymal echotexture and thickness are normal. There are no masses. There is no hydronephrosis or renal calculi. US/US renal BI IMPRESSION: Unremarkable renal ultrasound. Electronically signed by: Abdi Kelley MD 01/23/2025 03:15 PM EDT
--- NOTE | 2025-01-23 12:59 | ED_ITS ---
HPI - General Adult General Chief complaint: Chest Pain Stated complaint: Rib pain Time Seen by Provider: 01/23/25 15:19 Source: patient Mode of arrival: ambulatory Limitations: no limitations History of Present Illness ED Provider: HPI narrative: 34-year-old woman presenting with left lower back pain, works at [employer], does a lot of repetitive movement, pain is worse when she moves, it is not really over her chest as documented it is really her left lower back, no rashes no abdominal pain no chest pain no shortness of breath no fevers or chills. Has had no dysuria or hematuria Related Data Previous Rx's ?Medication ?Instructions ?Recorded acetaminophen 500 mg tablet 500 mg PO Q6H PRN pain or fever 08/22/20 (Tylenol Extra Strength) #20 tabs naproxen 500 mg tablet 500 mg PO BID PRN pain 10 da ys #20 08/22/20 tabs cyclobenzaprine 10 mg tablet 10 mg PO TID PRN muscle s pasm #10 01/08/21 tabs ibuprofen 800 mg tablet 800 mg PO Q8H PRN pain #15 t abs 01/08/21 polymyxin B sulfate 10,000 1 drp ophthalmic-Left Q3H 7 days 08/20/21 unit-trimethoprim 1 mg/mL eye #10 mL drops (Polytrim) acetaminophen 500 mg tablet 500 mg PO Q6H PRN pain or fever 09/24/21 (Tylenol Extra Strength) #20 tabs cyclobenzaprine 5 mg tablet 5 mg PO Q8H PRN pain (scal e score 09/24/21 7-10) 5 days #14 tabs lidocaine 5 % topical patch 1 patch topical DAILY PRN pain #30 09/24/21 (Lidoderm) ea naproxen 500 mg tablet 500 mg PO BID PRN pain 10 da ys #20 09/24/21 tabs nitrofurantoin 100 mg PO Q12H 5 days #10 ca ps 04/28/22 monohydrate/macrocrystals 100 mg capsule (Macrobid) ketorolac 10 mg tablet 10 mg PO Q8H PRN pain 5 days #15 12/16/22 tabs amoxicillin 500 mg tablet 500 mg PO Q8H #21 tabs 08/09 cyclobenzaprine 5 mg tablet 5 mg PO TID PRN muscle spa sm 23 01/23/25 days #10 tabs lidocaine 4 % topical patch 1 patch topical DAILY PRN pain #10 01/23/25 (Aspercreme (lidocaine)) ea prednisone 20 mg tablet 40 mg (2 x 20 mg) PO DAILY 5 days 01/23/25 #10 tabs Allergies Allergy/AdvReac Type Severity Reaction Status Date / Time No Known Allergies (No Known Allergy Verified 01/23/25 13:07 Allergies*) Review of Systems 2 Constitutional: Constitutional: Reports as per [facility] Past Medical History Medical History Asthma Social History Social History Alcohol intake: never Smoked in Last 30 Days: Yes Use of substances other than those prescribed or required for medical reasons: No Substance Use Type: Marijuana Advance Directives: No Advance Directives Information Provided: Yes Physical Exam ED Vital Signs: Vital Signs - 24 hr 01/23/25 13:00 01/23/25 15:22 Temperature 98.6 F 35.7 F L Pulse Rate 63 58 Respiratory Rate 16 16 Blood Pressure 133/79 107/51 L Pulse Oximetry 98 99 Oxygen Delivery Method Room Air Room Air BMI result Body Mass Index 41.9 Const Other: * Gen: ?Overall well-appearing patient, heavy-set woman * HEENT: PERRLA, EOMI, MMM, * Neck: Supple, no LAD * CV: RRR, no obvious murmurs appreciated * Resp: ?No wheezing rales rhonchi no stridor moving air well * Abd: ?Bowel sounds are present, no tenderness no rebound no rigidity * MSK: FROM, strength 5/5 all extremities, tenderness along left lower flank, * Skin: Warm, dry, intact, no rashes in the area * Neuro: ?Alert and oriented x3, moving upper and lower extremities symmetrically, no obvious facial asymmetry noted Course Course Course Narrative: This is an RME: Additional HPI, ROS, PE not included below will be deferred to primary provider. RME assessment and note performed by: Sabina Durant PA-C This is a [id number][id number]-female who presents to the ER with complaints of left sided flank/back pain x 1 month. Reports pain worsens with movement. Reports that when she rubs her left back she feels warmth in her left back. No fevers or chills. Taking tylenol for her symptoms which has given her some relief. No recent travels, surgeries or hospitalizations. No heavy lifting or trauma. Reporting warmth in her urine, however no dysuria. Plan: Labs, UA, further ER eval needed Medical Decision Making Medical Decision Making [facility] Narrative: Patient is presenting with left lower back pain, has had no chest pain or shortness of breath to suspect pleurisy or PE, in triage that is some report of history of DVTs but never diagnosed and no history of being on blood thinners, I do not elicit any PE risk factors I did not feel that further PE workup is indicated. She has had no dysuria hematuria to suspect renal colic however given history of back pain feel that renal workup is indicated we will obtain an ultrasound blood work and urinalysis. On physical examination no obvious rashes to suspect shingles Differential Diagnosis Differential Diagnoses: The differential diagnosis associated with the presentation includes Rib fractures, PE, ACS, renal colic, musculoskeletal pain Lab Data [facility] Lab Attestation statement: I reviewed the patient's lab results. 01/23/25 13:14 01/23/25 13:14 Labs: Lab Results 01/23/25 01/23/25 Range/Units 13:14 15:29 WBC 9.2 (4.8-10.8) X10*3/uL RBC 4.19 L (4.20-5.50) X10*6/uL Hgb 13.2 (12.0-16.0) g/dl Hct 38.6 (37.0-47.0) % MCV 92.1 (80.0-98.0) fL MCH 31.5 (27.0-33.0) pg MCHC 34.2 (31.0-35.0) g/dl RDW 13.0 (11.0-16.0) % Plt Count 191 (160-400) X10*3/uL MPV 10.6 (9.4-12.3) fL Immature Gran % (Auto) 0.3 (0.0-0.4) % Neut % (Auto) 68.3 (45-73) % Lymph % (Auto) 22.1 (20-40) % [place] % (Auto) 4.8 (2-11) % Eos % (Auto) 3.6 (0-4) % Baso % (Auto) 0.9 (0-2) % Lymph # (Auto) 2.0 (1.2-4.9) X10*3/uL [place] # (Auto) 0.4 (0.1-1.2) X10*3/uL Eos # (Auto) 0.3 (0.0-0.4) X10*3/uL Baso # (Auto) 0.1 (0.0-0.2) X10*3/uL Abs Immat Gran (auto) 0.03 (0.00-0.03) X10*3/uL Absolute Neuts (auto) 6.3 (2.0-8.3) x10*3/uL Absolute Nucleated RBC 0.000 (0.0-0.012) X10*3/uL Nucleated RBC % (auto) 0.0 (0.0-0.2) /100WBC Sodium 140 (135-145) mmol/L Potassium 4.3 (3.3-5.1) mmol/L Chloride 105 (96-108) mmol/L Carbon Dioxide 30 H (22-29) mmol/L Anion Gap 9 L (12-20) BUN 12 (9-16) mg/dL Creatinine 0.74 (0.5-1.4) mg/dL Estim Creat Clear Calc 151.3 Estimated GFR > 60 Random Glucose 88 (60-115) mg/dL Calcium 8.7 (8.4-10.2) mg/dL Total Bilirubin 0.5 (0.0-1.0) mg/dL Direct Bilirubin 0.2 (0.0-0.5) mg/dL AST 23 (5-31) U/L ALT 19 (0-31) U/L Alkaline Phosphatase 66 (39-117) U/L Total Protein 7.2 (6.5-8.0) g/dL Albumin 4.1 (3.5-5.0) g/dL Lipase 25 (8-78) U/L Beta HCG, Quant < 2 mIU/mL Urine Color Yellow Urine Appearance Clear Urine pH 6.5 (5.0-9.0) Ur Specific [place] 1.020 (1.005-1.025) Urine Protein Negative (Neg-Trace) mg/dL Urine Glucose (UA) Negative (Negative) mg/dL Urine Ketones Negative (Negative) mg/dL Urine Blood Negative (Negative) Urine Nitrite Negative (Negative) Ur Leukocyte Esterase Negative (Negative) Radiology Impression Discussion of test interpretation with radiology: I have reviewed the radiologist's reading. Radiologist Impression: IMPRESSION: Unremarkable renal ultrasound. Discharge Plan Discharge Clinical Impression: Lower back pain Qualifiers: Chronicity: acute Back pain laterality: left Sciatica presence: without sciatica Qualified Code(s): M54.50 - Low back pain, unspecified Patient Disposition: Home, Self-Care Additional Instructions: Your pain appears to be musculoskeletal in nature, you did have workup to make sure this is not your kidney, you had an ultrasound that was unremarkable blood work, urinalysis all of which has been reassuring use cyclobenzaprine before you go to bed it can make you drowsy believe used it in the past, you can use 1 pill every 8 hours, continue with steroids starting tomorrow, you can either get lidocaine patches or capsaicin ointment patches these are [id number] and follow up with the PCP you may need physical therapy, any other issues or concerns come back to the Prescriptions: New cyclobenzaprine 5 mg tablet 5 mg PO TID PRN (Reason: muscle spasm) 23 Days Qty: 10 0RF prednisone 20 mg tablet 40 mg PO DAILY 5 Days Qty: 10 0RF lidocaine [Aspercreme (lidocaine)] 4 % adhesive patch,medicated 1 patch topical DAILY PRN (Reason: pain) Qty: 10 0RF No Action acetaminophen [Tylenol Extra Strength] 500 mg tablet 500 mg PO Q6H PRN (Reason: pain or fever) Qty: 20 0RF naproxen 500 mg tablet 500 mg PO BID PRN (Reason: pain) 10 Days Qty: 20 0RF ibuprofen 800 mg tablet 800 mg PO Q8H PRN (Reason: pain) Qty: 15 0RF Rx Instructions: supervising MD Rere Ansari cyclobenzaprine 10 mg tablet 10 mg PO TID PRN (Reason: muscle spasm) Qty: 10 0RF Rx Instructions: supervising MD Barbara Ansari polymyxin B sulf-trimethoprim [Polytrim] 10,000 unit- 1 mg/mL drops 1 drp ophthalmic-Left Q3H 7 Days Qty: 10 0RF Rx Instructions: while awake; do not exceed 6 doses in 24 hours lidocaine [Lidoderm] 5 % adhesive patch,medicated 1 patch topical DAILY MDD remove after 12 hours PRN (Reason: pain) Qty: 30 0RF Rx Instructions: leave on most painful area for up to 12 hrs cyclobenzaprine 5 mg tablet 5 mg PO Q8H PRN (Reason: pain (scale score 7-10)) 5 Days Qty: 14 0RF acetaminophen [Tylenol Extra Strength] 500 mg tablet 500 mg PO Q6H PRN (Reason: pain or fever) Qty: 20 0RF naproxen 500 mg tablet 500 mg PO BID PRN (Reason: pain) 10 Days Qty: 20 0RF nitrofurantoin monohyd/m-cryst [Macrobid] 100 mg capsule 100 mg PO Q12H 5 Days Qty: 10 0RF Rx Instructions: must administer with a meal/food amoxicillin 500 mg tablet 500 mg PO Q8H Qty: 21 0RF ketorolac 10 mg tablet 10 mg PO Q8H PRN (Reason: pain) 5 Days Qty: 15 0RF Stand Alone Forms: Work/School Release Print Language: Tristanian
[2025-01-23 13:00] VITALS: BP 133/79; PULSE 63; RESP 16; TEMP 37; O2SAT 98; BMI 41.9
[2025-01-23 13:19] LABS: MANUAL DIFF FLAG NO
[2025-01-23 13:30] LABS: Hematocrit 38.6 % (37.0-47.0); Hemoglobin 13.2 g/dl (12.0-16.0); Imm Gran Abs Auto 0.03 X10*3/uL (0.00-0.03); Imm Gran Pct Auto 0.3 % (0.0-0.4); Lymphocytes Absolute Auto 2.0 X10*3/uL (1.2-4.9); Mean Corpuscular HGB Conc 34.2 g/dl (31.0-35.0); Mean Corpuscular Hemoglobin 31.5 pg (27.0-33.0); Mean Corpuscular Volume 92.1 fL (80.0-98.0); NRBC Abs Auto 0.000 X10*3/uL (0.0-0.012); NRBC Pct Auto 0.0 /100WBC (0.0-0.2); Platelet Count 191 X10*3/uL (160-400); Red Blood Count 4.19 X10*6/uL (4.20-5.50); White Blood Count 9.2 X10*3/uL (4.8-10.8)
[2025-01-23 13:47] LABS: Alanine Aminotransferase 19 U/L (0-31); Albumin Level 4.1 g/dL (3.5-5.0); Alkaline Phosphatase 66 U/L (39-117); Anion Gap 9 (12-20); Aspartate Amino Transferase 23 U/L (5-31); Blood Urea Nitrogen 12 mg/dL (9-16); Calcium 8.7 mg/dL (8.4-10.2); Carbon Dioxide 30 mmol/L (22-29); Chloride 105 mmol/L (96-108); Creatinine Clr Calc Pharmacy 151.3; Estimated Glomerular Filt Rate > 60; Lipase 25 U/L (8-78); Potassium 4.3 mmol/L (3.3-5.1); Sodium 140 mmol/L (135-145); Total Protein 7.2 g/dL (6.5-8.0)
[2025-01-23 15:22] VITALS: BP 107/51; PULSE 58; RESP 16; TEMP 2.1; TEMP 35.7; O2SAT 99
[2025-01-23 15:42] LABS: Appearance Urine Clear; Glucose Urine UA Negative (Negative); PH 6.5 (5.0-9.0); Specific Gravity - Urine 1.020 (1.005-1.025)
[2025-01-23] MEDS: Lidocaine 4 % Patch ADH..PATCH 1 PATCH TRANSDERMA (16:37)
[2025-01-23 16:42] VITALS: BP 107/51; PULSE 58; RESP 16; TEMP 35.7; O2SAT 99
== END 2025-01-23 16:43 | disposition home or self-care (01) ==
PROVIDERS: Physician Assistant Medical; Emergency Provider Emergency Medicine
DX: R07.89 Other chest pain (principal); M54.50 Low back pain, unspecified; R10.2 Pelvic and perineal pain; Z79.899 Other long term (current) drug therapy
CPT/HCPCS: 36415; 76775; 80048; 80076; 81003; 83690; 84702; 85025; 96372; 99284; J1885; J8540

== ENCOUNTER → 2025-01-23 13:03 | Outpatient (BNV) | payer MEDICAID, SELFPAY | PROVIDERS: Emergency Provider Emergency Medicine; Visit Provider Radiology Diagnostic Radiology | DX: R10.32 Left lower quadrant pain (principal) | CPT/HCPCS: 76775 ==

== ENCOUNTER 2025-04-12 13:41 | Emergency (ER) | payer SELFPAY ==
--- NOTE | ~2025-04-12 | XR_ITS ---
EXAMINATION: XR CHEST CLINICAL INFORMATION: cough COMPARISON: July 24, 2024 TECHNIQUE: PA and lateral views. FINDINGS: No consolidation, pleural effusion or pneumothorax. Cardiomediastinal silhouette size is normal. Multilevel thoracolumbar spondylosis. Patient's large body habitus/obesity. XR/XR chest 2V IMPRESSION: No acute airspace disease. Multilevel thoracic spondylosis. Electronically signed by: Yung Ag MD 04/12/2025 02:19 PM EDT
--- NOTE | 2025-04-12 13:42 | ECG_ITS ---
Test Reason : pain Blood Pressure : */* mmHG Vent. Rate : 82 BPM Atrial Rate : 82 BPM P-R Int : 112 ms QRS Dur : 90 ms QT Int : 408 ms P-R-T Axes : 42 30 11 degrees QTcB Int : 476 ms Normal sinus rhythm Normal ECG No previous ECGs available Referred By: Ptee Ulloa Electronically Signed By: Mando Mendoza
--- NOTE | 2025-04-12 14:02 | ED_ITS ---
HPI - General Adult General Chief complaint: Upper Respiratory Symptoms Stated complaint: CP Time Seen by Provider: 04/12/25 17:56 Source: patient Mode of arrival: ambulatory Limitations: no limitations History of Present Illness ED Provider: HPI narrative: 35-year-old woman, presenting with chest congestion for the past 2 days as well as nonproductive cough, has sick contacts, history of RSV, has history of asthma, smokes marijuana, no fevers or chills no pleurisy no hemoptysis reported. Related Data Previous Rx's ?Medication ?Instructions ?Recorded acetaminophen 500 mg tablet 500 mg PO Q6H PRN pain or fever 08/22/20 (Tylenol Extra Strength) #20 tabs naproxen 500 mg tablet 500 mg PO BID PRN pain 10 da ys #20 08/22/20 tabs cyclobenzaprine 10 mg tablet 10 mg PO TID PRN muscle s pasm #10 01/08/21 tabs ibuprofen 800 mg tablet 800 mg PO Q8H PRN pain #15 t abs 01/08/21 polymyxin B sulfate 10,000 1 drp ophthalmic-Left Q3H 7 days 08/20/21 unit-trimethoprim 1 mg/mL eye #10 mL drops (Polytrim) acetaminophen 500 mg tablet 500 mg PO Q6H PRN pain or fever 09/24/21 (Tylenol Extra Strength) #20 tabs cyclobenzaprine 5 mg tablet 5 mg PO Q8H PRN pain (scal e score 09/24/21 7-10) 5 days #14 tabs lidocaine 5 % topical patch 1 patch topical DAILY PRN pain #30 09/24/21 (Lidoderm) ea naproxen 500 mg tablet 500 mg PO BID PRN pain 10 da ys #20 09/24/21 tabs nitrofurantoin 100 mg PO Q12H 5 days #10 ca ps 04/28/22 monohydrate/macrocrystals 100 mg capsule (Macrobid) ketorolac 10 mg tablet 10 mg PO Q8H PRN pain 5 days #15 12/16/22 tabs amoxicillin 500 mg tablet 500 mg PO Q8H #21 tabs 08/09 cyclobenzaprine 5 mg tablet 5 mg PO TID PRN muscle spa sm 23 01/23/25 days #10 tabs lidocaine 4 % topical patch 1 patch topical DAILY PRN pain #10 01/23/25 (Aspercreme (lidocaine)) ea prednisone 20 mg tablet 40 mg (2 x 20 mg) PO DAILY 5 days 01/23/25 #10 tabs prednisone 20 mg tablet 40 mg (2 x 20 mg) PO DAILY 5 days 04/12/25 #10 tabs Allergies Allergy/AdvReac Type Severity Reaction Status Date / Time No Known Allergies (No Known Allergy Verified 04/12/25 14:04 Allergies*) Review of Systems 2 Constitutional: Constitutional: Reports as per [facility] Past Medical History Medical History Asthma Social History Social History Alcohol intake: never Smoked in Last 30 Days: No Substance Use Type: Marijuana Substance Use Frequency: Chronic Longstanding Advance Directives: No Advance Directives Information Provided: No Physical Exam ED Vital Signs: Vital Signs - 24 hr 04/12/25 14:03 04/12/25 17:30 04/12/25 17:30 Temperature 98.3 F Pulse Rate 69 61 Respiratory Rate 18 18 Blood Pressure 111/59 L 143/69 H Pulse Oximetry 99 99 Oxygen Delivery Method Room Air Room Air Room Air BMI result Body Mass Index 42.5 Const Other: * Gen: ?Overall well-appearing patient * HEENT: PERRLA, EOMI, MMM, * Neck: Supple, no LAD * CV: RRR, no obvious murmurs appreciated * Resp: ?Minimal expiratory wheezing otherwise moving air well * Abd: ?Bowel sounds are present, no tenderness no rebound no rigidity * MSK: FROM, strength 5/5 all extremities * Skin: Warm, dry, intact, * Neuro: ?Alert and oriented x3, moving upper and lower extremities symmetrically, no obvious facial asymmetry noted Course Course Course Narrative: RME, this is a rapid medical exam performed by Eagle Ulloa please refer to primary provider for complete H&P- 35 year old female presents for evaluation of congestion and shortness of breath with chest pain. Plan for ekg, chest x-ray and viral swabs. Symptoms started 2 days ago Medical Decision Making Medical Decision Making MDM Narrative: 6:53 PM 04/12/2025 (Dr. Julian Iqbal): PERC negative, chest x-ray without pneumonia, pneumothorax, we spoke about smoking cessation, swabs are negative, ECG without any evidence for underlying ACS, see my discharge instructions Differential Diagnosis Differential Diagnoses: The differential diagnosis associated with the presentation includes (CHF, COPD exacerbation, pneumonia, pneumothorax, ACS, PE,) Admission/Observation Consideration of admission/observation: Escalation of care including admission/observation considered Lab Data MDM Lab Attestation statement: I reviewed the patient's lab results. 04/12/25 17:44 04/12/25 17:44 Labs: Lab Results 04/12/25 04/12/25 04/12/25 Range/Units 14:23 14:24 17:44 WBC 10.1 (4.8-10.8) X10*3/uL RBC 4.17 L (4.20-5.50) X10*6/uL Hgb 13.2 (12.0-16.0) g/dl Hct 38.6 (37.0-47.0) % MCV 92.6 (80.0-98.0) fL MCH 31.7 (27.0-33.0) pg MCHC 34.2 (31.0-35.0) g/dl RDW 13.2 (11.0-16.0) % Plt Count 195 (160-400) X10*3/uL MPV 10.5 (9.4-12.3) fL Immature Gran % (Auto) 0.4 (0.0-0.4) % Neut % (Auto) 77.6 H (45-73) % Lymph % (Auto) 14.6 L (20-40) % [place] % (Auto) 4.7 (2-11) % Eos % (Auto) 2.2 (0-4) % Baso % (Auto) 0.5 (0-2) % Lymph # (Auto) 1.5 (1.2-4.9) X10*3/uL [place] # (Auto) 0.5 (0.1-1.2) X10*3/uL Eos # (Auto) 0.2 (0.0-0.4) X10*3/uL Baso # (Auto) 0.1 (0.0-0.2) X10*3/uL Abs Immat Gran (auto) 0.04 H (0.00-0.03) X10*3/uL Absolute Neuts (auto) 7.9 (2.0-8.3) x10*3/uL Absolute Nucleated RBC 0.000 (0.0-0.012) X10*3/uL Nucleated RBC % (auto) 0.0 (0.0-0.2) /100WBC Sodium 140 (135-145) mmol/L Potassium 3.9 (3.3-5.1) mmol/L Chloride 105 (96-108) mmol/L Carbon Dioxide 27 (22-29) mmol/L Anion Gap 12 (12-20) BUN 13 (9-16) mg/dL Creatinine 0.75 (0.5-1.4) mg/dL Estim Creat Clear Calc 149.1 Estimated GFR > 60 Random Glucose 87 (60-115) mg/dL Calcium 8.7 (8.4-10.2) mg/dL Total Bilirubin 0.6 (0.0-1.0) mg/dL AST 35 H (5-31) U/L ALT 24 (0-31) U/L Alkaline Phosphatase 64 (39-117) U/L Total Protein 7.8 (6.5-8.0) g/dL Albumin 4.2 (3.5-5.0) g/dL COVID-19 (ZAHEER) Negative (Negative) COVID-19 Clin Com See Note Influenza Type A (JACQUELYN) Negative (Negative) Influenza Type B (JACQUELYN) Negative (Negative) Influenza A & B Note See Note S. pyogenes GrpA JACQUELYN Negative (Negative) Independent Interpretation I performed an independent interpretation of an: EKG (82 beats per minute otherwise normal ECG without dysrhythmia, AV skip blocks or ST-T changes to suspect underlying ACS, my independent interpretation) and Plain X-Ray (My independent chest xray interpretation: Lungs: Lungs are clear bilaterally without evidence of focal consolidation, pleural effusion, or pneumothorax. Cardiac silhouette is unremarkable, no obvious mediastinal widening, no obvious bony abnormalities such as fractures. Impression: Normal chest X-r) Radiology Impression Discussion of test interpretation with radiology: I have reviewed the radiologist's reading. Prescription Management I considered prescription management with: Antibiotic Discharge Plan Discharge Clinical Impression: Asthma exacerbation Patient Disposition: Home, Self-Care Additional Instructions: Two puffs of albuterol every 4 hours for the rest of the day, continue steroids starting tomorrow Your chest x-ray, EKG, blood work and viral swab has been negative I recommend you held off on smoking at this time Follow up with the PCP Any other issues concerns come back to the ER Prescriptions: New prednisone 20 mg tablet 40 mg PO DAILY 5 Days Qty: 10 0RF No Action acetaminophen [Tylenol Extra Strength] 500 mg tablet 500 mg PO Q6H PRN (Reason: pain or fever) Qty: 20 0RF naproxen 500 mg tablet 500 mg PO BID PRN (Reason: pain) 10 Days Qty: 20 0RF ibuprofen 800 mg tablet 800 mg PO Q8H PRN (Reason: pain) Qty: 15 0RF Rx Instructions: supervising MD Rere Ansari cyclobenzaprine 10 mg tablet 10 mg PO TID PRN (Reason: muscle spasm) Qty: 10 0RF Rx Instructions: supervising MD Barbara Ansari polymyxin B sulf-trimethoprim [Polytrim] 10,000 unit- 1 mg/mL drops 1 drp ophthalmic-Left Q3H 7 Days Qty: 10 0RF Rx Instructions: while awake; do not exceed 6 doses in 24 hours lidocaine [Lidoderm] 5 % adhesive patch,medicated 1 patch topical DAILY MDD remove after 12 hours PRN (Reason: pain) Qty: 30 0RF Rx Instructions: leave on most painful area for up to 12 hrs cyclobenzaprine 5 mg tablet 5 mg PO Q8H PRN (Reason: pain (scale score 7-10)) 5 Days Qty: 14 0RF acetaminophen [Tylenol Extra Strength] 500 mg tablet 500 mg PO Q6H PRN (Reason: pain or fever) Qty: 20 0RF naproxen 500 mg tablet 500 mg PO BID PRN (Reason: pain) 10 Days Qty: 20 0RF nitrofurantoin monohyd/m-cryst [Macrobid] 100 mg capsule 100 mg PO Q12H 5 Days Qty: 10 0RF Rx Instructions: must administer with a meal/food amoxicillin 500 mg tablet 500 mg PO Q8H Qty: 21 0RF ketorolac 10 mg tablet 10 mg PO Q8H PRN (Reason: pain) 5 Days Qty: 15 0RF cyclobenzaprine 5 mg tablet 5 mg PO TID PRN (Reason: muscle spasm) 23 Days Qty: 10 0RF prednisone 20 mg tablet 40 mg PO DAILY 5 Days Qty: 10 0RF lidocaine [Aspercreme (lidocaine)] 4 % adhesive patch,medicated 1 patch topical DAILY PRN (Reason: pain) Qty: 10 0RF Print Language: Kiswahili
[2025-04-12 14:03] VITALS: BP 111/59; PULSE 69; RESP 18; TEMP 36.8; O2SAT 99; BMI 42.5
[2025-04-12 14:45] LABS: IDNOW Serial# 55D5AD1C; Strep A Nucleic Acid Negative (Negative)
[2025-04-12 14:51] LABS: COVID-19 Test Negative (Negative); IDNOW Serial# 08D9AD1C; IDNOW Serial# 58CA691E; Influenza B2 Negative (Negative)
[2025-04-12 17:30] VITALS: BP 143/69; PULSE 61; RESP 18; O2SAT 99
--- NOTE | 2025-04-12 17:48 | PC.NURSE ---
Patient is a 35 yo female with a pmh of asthma and obesity, who presents with c/o cough with assoc CP, sore throat, and BRYSON for the past 3 days. Patient with a history of RSV. Alert and oriented. Lungs essentially clear bilat. Respirations even and non-labored. positive congested, wheezy cough noted. Abdomen large, soft, non-tender with positive bowel sounds. Positive pedal pulses
[2025-04-12 17:49] LABS: MANUAL DIFF FLAG NO
[2025-04-12 17:56] LABS: Hematocrit 38.6 % (37.0-47.0); Hemoglobin 13.2 g/dl (12.0-16.0); Imm Gran Abs Auto 0.04 X10*3/uL (0.00-0.03); Imm Gran Pct Auto 0.4 % (0.0-0.4); Lymphocytes Absolute Auto 1.5 X10*3/uL (1.2-4.9); Mean Corpuscular HGB Conc 34.2 g/dl (31.0-35.0); Mean Corpuscular Hemoglobin 31.7 pg (27.0-33.0); Mean Corpuscular Volume 92.6 fL (80.0-98.0); NRBC Abs Auto 0.000 X10*3/uL (0.0-0.012); NRBC Pct Auto 0.0 /100WBC (0.0-0.2); Platelet Count 195 X10*3/uL (160-400); Red Blood Count 4.17 X10*6/uL (4.20-5.50); White Blood Count 10.1 X10*3/uL (4.8-10.8)
[2025-04-12 18:07] LABS: Alanine Aminotransferase 24 U/L (0-31); Albumin Level 4.2 g/dL (3.5-5.0); Alkaline Phosphatase 64 U/L (39-117); Anion Gap 12 (12-20); Aspartate Amino Transferase 35 U/L (5-31); Blood Urea Nitrogen 13 mg/dL (9-16); Calcium 8.7 mg/dL (8.4-10.2); Carbon Dioxide 27 mmol/L (22-29); Chloride 105 mmol/L (96-108); Creatinine Clr Calc Pharmacy 149.1; Estimated Glomerular Filt Rate > 60; Potassium 3.9 mmol/L (3.3-5.1); Sodium 140 mmol/L (135-145); Total Protein 7.8 g/dL (6.5-8.0)
[2025-04-12] MEDS: Albuterol Sulfate 90 MCG 8 GM INHALER 2 PUFF INHALE (19:01)
[2025-04-12 19:29] VITALS: BP 143/69; PULSE 61; RESP 18; TEMP 36.7; O2SAT 99
== END 2025-04-12 19:30 | disposition home or self-care (01) ==
PROVIDERS: Physician Assistant; Emergency Provider Emergency Medicine
DX: J45.901 Unspecified asthma with (acute) exacerbation (principal); R09.89 Other specified symptoms and signs involving the circulatory and respiratory systems
CPT/HCPCS: 36415; 71046; 80053; 85025; 87502; 87635; 87651; 93005; 99284; 99285

== ENCOUNTER → 2025-04-12 13:42 | Outpatient (BNV) | payer SELFPAY | PROVIDERS: Emergency Provider Emergency Medicine; Visit Provider Internal Medicine Cardiovascular Disease | DX: R07.9 Chest pain, unspecified (principal) | CPT/HCPCS: 93010 ==

== ENCOUNTER → 2025-04-12 13:44 | Outpatient (BNV) | payer MEDICAID, SELFPAY | PROVIDERS: Visit Provider Radiology Diagnostic Radiology | DX: R05.9 Cough, unspecified (principal) | CPT/HCPCS: 71046 ==

== ENCOUNTER 2025-04-25 18:05 | Emergency (ER) | payer MEDICAID, SELFPAY ==
--- NOTE | ~2025-04-25 | XR_ITS ---
CLINICAL HISTORY: left hand pain 3 view left hand Comparison: CR - XR HAND LT MIN 3V - 12/16/2024 01:30 PM EDT Findings: Bones intact. No dislocations. No significant arthritic change. No erosions. No radiopaque foreign body. IMPRESSION: 1. No acute fracture. This document has been electronically signed by: Roula Plascencia MD on 04/25/2025 19:12:08
[2025-04-25 18:15] VITALS: BP 121/67; PULSE 65; RESP 18; O2SAT 100; BMI 42.5
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
[2025-04-25] MEDS: Diphth,Pertus(ACell),Tet Adult 0.5 ML SYRINGE IM (19:19)
[2025-04-25] MEDS: Lidocaine HCl 2 % MPF 5 ML VIAL INFILTRATI (19:19)
--- NOTE | 2025-04-25 19:23 | PC.NURSE ---
Took over for SHAHZAD Frey pt medicated per sep, laceration site cleaned and awaiting for provider.
--- NOTE | 2025-04-25 21:02 | PC.NURSE ---
laceration site clean, medicated per sep, reviewed discharge instructions with pt. pt verbalized understanding, in sign of distress, positive cms and pedal pulses.
[2025-04-25 21:04] VITALS: BP 121/67; PULSE 65; RESP 18; TEMP 36.1; O2SAT 100
== END 2025-04-25 21:05 | disposition home or self-care (01) ==
PROVIDERS: Emergency Provider Emergency Medicine
DX: S61.213A Laceration without foreign body of left middle finger without damage to nail, initial encounter (principal); S63.92XA Sprain of unspecified part of left wrist and hand, initial encounter; Z23 Encounter for immunization; W23.0XXA Caught, crushed, jammed, or pinched between moving objects, initial encounter; Y93.9 Activity, unspecified; Y92.9 Unspecified place or not applicable; Y99.9 Unspecified external cause status
CPT/HCPCS: 12001; 73130; 90471; 90715; 96372; 99284; J1885; J2003

== ENCOUNTER → 2025-04-25 18:13 | Outpatient (BNV) | payer MEDICAID, SELFPAY | PROVIDERS: Emergency Provider Emergency Medicine; Visit Provider Student in an Organized Health Care Education/Training Program | DX: M79.642 Pain in left hand (principal) | CPT/HCPCS: 73130 ==